=== PATIENT | male | born 1970 | race Caucasian/White ===

== ENCOUNTER 2017-07-04 11:24 | Inpatient (IN) | payer OTHER ==
[2017-07-04 11:31] VITALS: BMI 20.2
[2017-07-04] MEDS ORDERED: SODIUM CHLORIDE 1,000 ML IV STA ×2 (11:54→15:10)
[2017-07-04] MEDS ORDERED: ACETAMINOPHEN 1000 MG/100 ML VIAL (NON FORMULARY) IVPB ONE (11:54)
[2017-07-04] MEDS ORDERED: ACETAMINOPHEN INJECTION 100 ML IVPB ONE (13:06)
[2017-07-04 13:16] LABS: MCH 31.7 pg (25.7-33.7); MCHC 33.4 g/dl (32.0-35.9); MEAN CELL VOLUME 94.9 fl (80-96); MEAN PLT VOLUME 9.4 fl (7.5-11.1); PLATELET COUNT 301 K/MM3 (134-434); RDW 12.7 % (11.9-15.9)
--- NOTE | 2017-07-04 13:16 | PDOC ---
History of Present Illness - General Chief Complaint: Revisit, Lab Variance Stated Complaint: LAB VARIANCE Time Seen by Provider: 07/04/17 11:50 History Source: Patient Exam Limitations: No Limitations - History of Present Illness Initial Comments: 07/04/17 12:20 47-year-old male presents to the ED with complaints of as per recommendations from the nurse practitioner [facility]. Patient history of HIV since 1999 and is an intranasal heroin user who due to loss of insurance, had stopped taking his antiretroviral medications about 3 months ago. 2 days ago he went back to the clinic since he has insurance now and clinician had noted elevated white count, low sodium, and bandemia. As per Dr. Prasad, patient is to be admitted to the hospitalist and he will manage pt. Patient does complain of cough but denies fever, chills abdominal pain, dysuria, or rash. 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 Patient states also has lost about 30 pounds over the past few months after coming off his medication stating he has no urge to eat and has no taste in his mouth. Patient states no change in urine pattern, change in bowel pattern, redness around the surgical site, headache, cough, or difficulty breathing. Timing/Duration: getting worse Severity: moderate Associated Symptoms: reports: loss of appetite Past History - Travel Traveled outside of the country in the last 30 days: No Close contact w/someone who was outside of country & ill: No - Past Medical History Allergies/Adverse Reactions: Allergies Allergy/AdvReac Type Severity Reaction Status Date / Time gluten Allergy Severe Vomiting Verified 07/04/17 11:28 peanut Allergy Severe Itching Verified 07/04/17 11:28 NKDA Allergy Uncoded 07/04/17 11:28 Home Medications: Ambulatory Orders Colchicine [Colcrys -] 0.6 mg PO PRN #30 tablet 08/16/16 Efavirenz/Emtricitab/Tenofovir [Atripla Tablet -] 1 tab PO DAILY #30 tab Entecavir [Baraclude] 0.5 mg PO DAILY #30 tablet 02/27/17 Anemia: No Asthma: No Cancer: No Cardiac Disorders: No CVA: No COPD: No CHF: No Dementia: No Diabetes: No GI Disorders: Yes (acid reflux) Disorders: No HTN: No Hypercholesterolemia: No Kidney Stones: No Liver Disease: Yes (hepatitis b.) Seizures: No Thyroid Disease: No Other medical history: gout. - Surgical History Abdominal Surgery: No Appendectomy: No Cardiac Surgery: No Cholecystectomy: No Lung Surgery: No Neurologic Surgery: No Orthopedic Surgery: No - Reproductive History Testicular Surgery: No - Suicide/Smoking/Psychosocial Hx Smoking History: Current every day smoker Have you smoked in the past 12 months: Yes Number of Cigarettes Smoked Daily: 30 Cigars Per Day: 0 Information on smoking cessation initiated: No 'Breaking Loose' booklet given: 07/29/16 Hx Alcohol Use: Yes (VERY RARELY.) Drug/Substance Use Hx: Yes (SNIFFS HEROIN.) Substance Use Type: Alcohol, Heroin Hx Substance Use Treatment: Yes Patient Lives Alone: Yes Lives with/in: lives alone Review of Systems - Review of Systems Able to Perform ROS?: Yes Constitutional: Yes: Loss of Appetite, Weakness, Unintentional Wgt. Loss HEENTM: Yes: Other (dry tongue) Cardiac (ROS): No: Symptoms Reported ABD/GI: Yes: Poor Appetite, Poor Fluid Intake. No: Constipated, Diarrhea, Nausea, Vomiting, Abdominal cramping : No: Symptoms Reported Musculoskeletal: No: Symptoms Reported Integumentary: No: Symptoms Reported Neurological: Yes: Weakness (mild generalized) Psychiatric: No: Anxiety, Depression Hematologic/Lymphatic: Yes: See HPI *Physical Exam - Vital Signs Last Vital Signs Temp Pulse Resp BP Pulse Ox 98.6 F 124 H 20 134/62 97 07/04/17 11:28 07/04/17 11:28 07/04/17 11:28 07/04/17 11:28 07/04/17 11:28 - Physical Exam General Appearance: Yes: Appropriately Dressed, Cachetic. No: Apparent Distress , Alcohol on Breath HEENT: positive: EOMI, CULLEN, Normal Voice, TMs Normal. negative: Pharynx Normal (+ thrush) Neck: positive: Normal Thyroid. negative: Lymphadenopathy (R), Lymphadenopathy (L) Respiratory/Chest: positive: Other (coarse BS throughout both lung ramirez. ). negative: Respiratory Distress, Accessory Muscle Use Cardiovascular: positive: Regular Rhythm, Tachycardia. negative: Murmur Gastrointestinal/Abdominal: positive: Soft. negative: Tenderness Integumentary: positive: Normal Color, Dry, Warm, Other (Healed incision to the medial aspect of left wrist.) Neurologic: positive: Normal Mood/Affect, Motor Strength 5/5 (ambulatory) Heart Score/ECG Review - History History: Slightly suspicious - Electrocardiogram EKG: Normal - Age Age: 45-65 - Risk Factors Risk Factors Heart Score: Yes Smoking History Based on the list above the patient has:: 1-2 risk factors - Troponin Troponin: </= normal limit - Score Heart Score - Total: 2 - ECG Impressions Tachycardia: Sinus (rate 108. normal sinus.) ED Treatment Course - LABORATORY CBC & Chemistry Diagram: 07/05/17 06:05 07/05/17 06:05 - RADIOLOGY Radiology Studies Ordered: Category Date Time Status CHEST X-RAY PORTABLE* [RAD] Stat Radiology 07/04/17 11:54 Taken Medical Decision Making - Medical Decision Making 07/04/17 13:00 Patient sent in from [facility] for evaluation of leukocytosis, bandemia, hyponatremia, 30 pound weight loss, and no antiretroviral medication for the past 3 months due to lack of insurance. Patient on exam appears cachectic with no acute abdominal pain, no signs of infection, or acute distress. Patient ordered for full septic workup including lipase and influenza testing. Differential to include sepsis, leukemia, pancreatitis, and dehydration 07/04/17 13:24 Laboratory Tests 07/04/17 12:17 WBC 29.0 H Hgb 11.6 L D Hct 34.8 L Chest x-ray shows right upper lobe density consolidative opacity extending toward the right which is compatible with pneumonia in the appropriate clinical setting. Patient is a heavy pack per day smoker and did have coarse breath sounds to both lung ramirez. Patient ordered for vancomycin and azithromycin. 07/04/17 15:10 Laboratory Tests 07/04/17 07/04/17 07/04/17 12:17 12:17 12:17 WBC 29.0 H Hgb 11.6 L D Hct 34.8 L PT with INR 18.50 H INR 1.64 H D VBG pH POC VBG pO2 Mixed VBG HCO3 Sodium 128 L Chloride 90 L Carbon Dioxide 29 Anion Gap 9 BUN 14 Creatinine 1.1 Creat Clearance w eGFR > 60 Random Glucose 113 H Lactic Acid Calcium 8.7 Magnesium 2.0 Total Bilirubin 1.5 H AST 49 H D ALT 20 Alkaline Phosphatase 156 H Creatine Kinase Pending Troponin I Pending Total Protein 7.1 Albumin 2.1 L D Lipase 48 L 07/04/17 07/04/17 12:40 14:00 WBC Hgb Hct PT with INR INR VBG pH 7.46 H POC VBG pO2 55.1 H Mixed VBG HCO3 27.8 H Sodium Chloride Carbon Dioxide Anion Gap BUN Creatinine Creat Clearance w eGFR Random Glucose Lactic Acid 2.6 H* Calcium Magnesium Total Bilirubin AST ALT Alkaline Phosphatase Creatine Kinase Troponin I Total Protein Albumin Lipase Patient ordered for second bag of IV fluid secondary to hyponatremia and elevated lactic. Awaiting urine specimen. Patient be admitted to Dr. Cabrera. Consultation the computer for Dr. Prasad 07/04/17 17:16 Laboratory Tests 07/04/17 15:30 Lactic Acid 1.2 07/04/17 17:17 Selected Entries 07/04/17 14:58 Temperature 98.3 F Pulse Rate [ 85 Apical] Respiratory 16 Rate Blood Pressure 109/67 [Left Arm] O2 Sat by Pulse 97 Oximetry (%) *DC/Admit/Observation/Transfer Diagnosis at time of Disposition: HIV (human immunodeficiency virus infection), Sepsis, Hyponatremia Pneumonia involving right lung Qualifiers: Pneumonia type: due to unspecified organism - Discharge Dispostion Admit: Yes - Referrals
[2017-07-04] MEDS ORDERED: AZITHROMYCIN 250 MG TABLET PO ONE (13:25)
[2017-07-04] MEDS ORDERED: VANCOMYCIN 1,000 MG in DEXTROSE 5%-WATER - 250 ML IVPB ONE (13:25)
[2017-07-04] MEDS ORDERED: AZITHROMYCIN 250 MG TABLET ONE (13:38)
[2017-07-04] MEDS ORDERED: VANCOMYCIN 1 GRAM (PRE-DOCKED) 250 ML IVPB ONE (13:38)
[2017-07-04 13:45] LABS: INR 1.64 (0.82-1.09); PROTHROMBIN TIME (PATIENT) 18.5 SEC (9.98-11.88)
[2017-07-04 13:49] LABS: ALBUMIN 2.1 g/dl (3.4-5.0); ANION GAP 9 (8-16); BILIRUBIN,TOTAL 1.5 mg/dL (0.2-1.0); CALCIUM 8.7 mg/dL (8.5-10.1); CO2 29 mmol/L (21-32); CREATININE 1.1 mg/dL (0.7-1.3); GLUCOSE,RANDOM 113 mg/dL (74-106); SGPT/ALT 20 U/L (12-78); TOT PROT 7.1 g/dl (6.4-8.2)
[2017-07-04 13:52] LABS: ALK PHOS 156 U/L (45-117)
[2017-07-04 14:14] LABS: VENOUS BLOOD GAS HCO3 27.8 meq/L (19-25)
--- NOTE | 2017-07-04 14:23 | PDOC ---
*Physical Exam - Vital Signs Last Vital Signs Temp Pulse Resp BP Pulse Ox 98.6 F 124 H 20 134/62 97 07/04/17 11:28 07/04/17 11:28 07/04/17 11:28 07/04/17 11:28 07/04/17 11:28 ED Treatment Course - LABORATORY CBC & Chemistry Diagram: 07/08/17 06:30 07/08/17 06:30 - ADDITIONAL ORDERS Additional order review: Laboratory Results 07/04/17 07/04/17 12:17 12:17 PT with INR 18.50 H INR 1.64 H D Blood Type Cancelled Antibody Screen Cancelled Spec Expiration Date Cancelled 07/04/17 13:26 Influenza Types A,B Antigen (SHAVONNE) - Preliminary Nasopharyngeal Swab - Preliminary 07/04/17 12:17 RBC 3.67 L MCV 94.9 MCHC 33.4 RDW 12.7 MPV 9.4 Neutrophils % No Result Required. Lymphocytes % No Result Required. - Medications Given in the ED: ED Medications Discontinued Medications Generic Name Dose Route Start Last Admin Trade Name Justinoq PRN Reason Stop Dose Admin Acetaminophen 1,000 mg 07/04/17 11:54 07/04/17 13:14 Ofirmev Injection - IVPB 07/04/17 11:55 1,000 mg ONCE ONE Administration Azithromycin 500 mg 07/04/17 13:25 07/04/17 13:42 Zithromax - PO 07/04/17 13:26 500 mg ONCE ONE Administration Sodium Chloride 1,000 mls @ 1,000 mls/hr 07/04/17 11:54 07/04/17 13:14 Normal Saline - IV 07/04/17 12:53 1,000 mls/hr ASDIR STA Administration Medical Decision Making - Medical Decision Making 07/04/17 14:17 Patient seen and evaluated with the nurse practitioner. I agree with the overall evaluation, assessment, and management with the following summary of visit: 47-year-old male with history of HIV noncompliant with medications sent from [facility] for admission for leukocytosis with bandemia, overall failure to thrive. Agree with exam, ill-appearing Persistent leukocytosis, right upper lobe chest x-ray findings Started on antibiotics Proceed with admission *DC/Admit/Observation/Transfer Diagnosis at time of Disposition: HIV (human immunodeficiency virus infection), Hyponatremia Pneumonia involving right lung Qualifiers: Pneumonia type: due to unspecified organism Lung location: unspecified part of lung Qualified Code(s): J18.9 - Pneumonia, unspecified organism; J18.9 - Pneumonia, unspecified organism Sepsis Qualifiers: Sepsis type: sepsis due to unspecified organism Qualified Code(s): A41.9 - Sepsis, unspecified organism; A41.9 - Sepsis, unspecified organism; A41.9 - Sepsis, unspecified organism
[2017-07-04 14:32] LABS: SGOT/AST 49 U/L (15-37)
[2017-07-04 14:36] LABS: VENOUS PH 7.46 (7.32-7.42)
[2017-07-04 15:02] LABS: PLATELET ESTIMATE ADEQUATE (NORMAL); TOTAL CELLS COUNTED 100
[2017-07-04 15:19] LABS: TROPONIN I < 0.02 ng/ml (0.00-0.05)
--- NOTE | 2017-07-04 15:20 | HP ---
Admitting History and Physical - Admission Chief Complaint: abnomal labs History of Present Illness: 47-year-old male presents to the ED with complaints of as per recommendations from the nurse [facility]. Patient history of HIV recent 1999 and is a nasal heroin user who due to loss of insurance had stopped taking his HAART medications about 3 months ago and 2 days ago went back to the clinic since he has insurance now and had noted elevated white count, low sodium, and bandemia. as per Dr. Prasad patient is to be admitted to the hospitalist and he will consult . 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 Patient states also has lost about 30 pounds over the past few months after coming off his medication stating he has no urge to eat and has no taste in his mouth. Patient states no change in urine pattern, change in bowel pattern, redness around the surgical site, headache, cough, or difficulty breathing. Timing/Duration: getting worse Severity: moderate Associated Symptoms: reports: loss of appetite per patient he has been feeling weak tired no appetite,and very thirsty, he said that the clinic called him stating that he had abnormal labs needs to be admitted per patient he also complaining of generalized abdominal pain, no fever no chills, but does have a cough History Source: Medical Record - Past Medical History Infectious Disease: Yes: HIV - Smoking History Smoking history: Current every day smoker Have you smoked in the past 12 months: Yes Aproximately how many cigarettes per day: 30 - Alcohol/Substance Use Hx Alcohol Use: Yes (VERY RARELY.) Home Medications - Allergies Allergies/Adverse Reactions: Allergies Allergy/AdvReac Type Severity Reaction Status Date / Time gluten Allergy Severe Vomiting Verified 07/04/17 11:28 peanut Allergy Severe Itching Verified 07/04/17 11:28 NKDA Allergy Uncoded 07/04/17 11:28 - Home Medications Home Medications: Ambulatory Orders Colchicine [Colcrys -] 0.6 mg PO PRN #30 tablet 08/16/16 Efavirenz/Emtricitab/Tenofovir [Atripla Tablet -] 1 tab PO DAILY #30 tab Entecavir [Baraclude] 0.5 mg PO DAILY #30 tablet 02/27/17 Family Disease History - Family Disease History Family Disease History: Heart Disease: Mother (HAD CABG), CA: Father (LUNGS AND ), Brother (heart disease), Other: Brother, Sister (a&w) Review of Systems - Review of Systems Constitutional: reports: Loss of Appetite, Weakness Respiratory: reports: Cough Gastrointestinal: reports: Abdominal Pain Physical Examination Vital Signs: Vital Signs Temperature 98.3 F 07/04/17 14:58 Pulse Rate 85 07/04/17 14:58 Respiratory Rate 16 07/04/17 14:58 Blood Pressure 109/67 07/04/17 14:58 O2 Sat by Pulse Oximetry (%) 97 07/04/17 14:58 Constitutional: Yes: Calm, Thin Cardiovascular: Yes: Regular Rate and Rhythm, S1, S2 Respiratory: Yes: Rhonchi Gastrointestinal: Yes: Tenderness (in LLQ) Edema: No Psychiatric: Yes: Alert, Oriented Labs: CBC, BMP 07/04/17 12:17 07/04/17 12:17 Imaging - Results Chest X-ray: Report Reviewed Problem List - Problems (1) Sepsis Assessment/Plan: admit inpatient ID broad spectrum abx monitir WBC trend lactic acid chest to further evaulate lung mas and abdomen CT r.o colitis hearpin sub q Code(s): A41.9 - SEPSIS, UNSPECIFIED ORGANISM (2) HIV (human immunodeficiency virus infection) Assessment/Plan: HAART per ID Code(s): Z21 - ASYMPTOMATIC HUMAN IMMUNODEFICIENCY VIRUS INFECTION STATUS (3) Pneumonia involving right lung Assessment/Plan: iv abx chest ct Code(s): J18.9 - PNEUMONIA, UNSPECIFIED ORGANISM Qualifiers: Pneumonia type: due to unspecified organism (4) Hyponatremia Assessment/Plan: fluids Code(s): E87.1 - HYPO-OSMOLALITY AND HYPONATREMIA
[2017-07-04 15:21] LABS: CPK 169 IU/L (39-308)
[2017-07-04] MEDS ORDERED: ACETAMINOPHEN 325 MG TABLET (FP) PO PRN (15:38)
[2017-07-04 15:40] LABS: URINE APPEARANCE CLEAR; URINE BLOOD 1+ (NEGATIVE); URINE COLOR AMBER; URINE GLUCOSE (UA) NEGATIVE (NEGATIVE); URINE KETONE NEGATIVE (NEGATIVE); URINE NITRITE NEGATIVE (NEGATIVE); URINE UROBILINOGEN 4.0 E.U/dl mg/dL (0.2-1.0)
[2017-07-04 15:44] LABS: URINE PROTEIN 1+ (NEGATIVE)
[2017-07-04 15:46] LABS: URINE MUCUS RARE; URINE RBC 2 /hpf (0-3); URINE WBC 3 /hpf (3-5)
[2017-07-04] MEDS: SODIUM CHLORIDE 1,000 ML IV SCH (16:29)
[2017-07-04 18:23] LABS: URINE LEUK ESTERASE Negative (NEGATIVE)
[2017-07-04 20:08] LABS: ANION GAP 7 (8-16); CALCIUM 8.4 mg/dL (8.5-10.1); CO2 28 mmol/L (21-32); CREATININE 0.9 mg/dL (0.7-1.3); GLUCOSE,RANDOM 85 mg/dL (74-106)
--- NOTE | 2017-07-04 21:56 | EKG ---
Test Reason : Blood Pressure : / mmHG Vent. Rate : 108 BPM Atrial Rate : 108 BPM P-R Int : 148 ms QRS Dur : 086 ms QT Int : 306 ms P-R-T Axes : 062 058 059 degrees QTc Int : 410 ms SINUS TACHYCARDIA OTHERWISE NORMAL ECG NO PREVIOUS ECGS AVAILABLE CLI Confirmed by DONA CHIN MD ([id number]) on 07/04/2017 9:55:41 PM Referred By: Confirmed By:DONA CHIN MD
[2017-07-04] MEDS: HEPARIN NA (PORCINE) 5,000 UNITS/ML 1ML VIAL SQ SCH (22:13)
[2017-07-04 22:18] LABS: URIC ACID 4.3 mg/dL (2.6-7.2)
[2017-07-05] MEDS: SODIUM CHLORIDE 1,000 ML IV SCH ×2 (05:41→17:34)
[2017-07-05 07:24] LABS: MCH 31.4 pg (25.7-33.7); MCHC 32.9 g/dl (32.0-35.9); MEAN CELL VOLUME 95.3 fl (80-96); MEAN PLT VOLUME 9.1 fl (7.5-11.1); PLATELET COUNT 239 K/MM3 (134-434); RDW 13.1 % (11.9-15.9); WHITE BLOOD COUNT 13.9 K/mm3 (4.0-10.0)
[2017-07-05 08:25] LABS: ALBUMIN 1.7 g/dl (3.4-5.0); ANION GAP 8 (8-16); CALCIUM 7.6 mg/dL (8.5-10.1); CO2 27 mmol/L (21-32); GLUCOSE,RANDOM 82 mg/dL (74-106); SGOT/AST 27 U/L (15-37)
[2017-07-05 08:37] LABS: ALK PHOS 207 U/L (45-117); BILIRUBIN,TOTAL 1.1 mg/dL (0.2-1.0); CREATININE 0.8 mg/dL (0.7-1.3); PHOSPHOROUS 2.8 mg/dL (2.5-4.9); SGPT/ALT 17 U/L (12-78); THYROID STIMULATING HORMONE 0.43 uIU/ml (0.358-3.74); TOT PROT 5.6 g/dl (6.4-8.2)
--- NOTE | 2017-07-05 08:56 | CONSULT ---
Consultation: REQUESTING PROVIDER: CONSULT REQUEST: We have been asked to medically evaluate this patient for ( specify). HISTORY OF PRESENT ILLNESS: REVIEW OF SYSTEMS: CONSTITUTIONAL: Absent: fever, chills, diaphoresis, generalized weakness, malaise, loss of appetite, weight change HEENT: Absent: rhinorrhea, nasal congestion, throat pain, throat swelling, difficulty swallowing, mouth swelling, ear pain, eye pain, visual changes CARDIOVASCULAR: Absent: chest pain, syncope, palpitations, irregular heart rate, lightheadedness , peripheral edema RESPIRATORY: Absent: cough, shortness of breath, dyspnea with exertion, orthopnea, wheezing, stridor, hemoptysis GASTROINTESTINAL: Absent: abdominal pain, abdominal distension, nausea, vomiting, diarrhea, constipation, melena, hematochezia GENITOURINARY: Absent: dysuria, frequency, urgency, hesitancy, hematuria, flank pain, genital pain MUSCULOSKELETAL: Absent: myalgia, arthralgia, joint swelling, back pain, neck pain SKIN: Absent: rash, itching, pallor HEMATOLOGIC/IMMUNOLOGIC: Absent: easy bleeding, easy bruising, lymphadenopathy, frequent infections ENDOCRINE: Absent: unexplained weight gain, unexplained weight loss, heat intolerance, cold intolerance NEUROLOGIC: Absent: headache, focal weakness or paresthesias, dizziness, unsteady gait, seizure, mental status changes, bladder or bowel incontinence PSYCHIATRIC: Absent: anxiety, depression, suicidal or homicidal ideation, hallucinations. PHYSICAL EXAMINATION Vital Signs - 24 hr 07/04/17 07/04/17 07/05/17 22:38 23:19 06:18 Temperature 97.8 F 99.0 F Pulse Rate 100 H 88 Respiratory 20 20 20 Rate Blood Pressure 122/76 111/64 O2 Sat by Pulse 98 Oximetry (%) GENERAL: Awake, alert, and fully oriented, in no acute distress. HEAD: Normal with no signs of trauma. EYES: Pupils equal, round and reactive to light, extraocular movements intact, sclera anicteric, conjunctiva clear. No lid lag. EARS, NOSE, THROAT: Ears normal, nares patent, oropharynx clear without exudates. Moist mucous membranes. NECK: Normal range of motion, supple without lymphadenopathy, JVD, or masses. LUNGS: Breath sounds equal, clear to auscultation bilaterally. No wheezes, and no crackles. No accessory muscle use. HEART: Regular rate and rhythm, normal S1 and S2 without murmur, rub or gallop. ABDOMEN: Soft, nontender, not distended, normoactive bowel sounds, no guarding, no rebound, no masses. No hepatomegaly or splenomegaly. MUSCULOSKELETAL: Normal range of motion at all joints. No bony deformities or tenderness. No CVA tenderness. UPPER EXTREMITIES: 2+ pulses, warm, well-perfused. No cyanosis. No clubbing. Cap refill <2 seconds. No peripheral edema. LOWER EXTREMITIES: 2+ pulses, warm, well-perfused. No calf tenderness. No peripheral edema. NEUROLOGICAL: Cranial nerves II-XII intact. Normal speech. Normal gait. PSYCHIATRIC: Cooperative. Good eye contact. Appropriate mood and affect. SKIN: Warm, dry, normal turgor, no rashes or lesions noted. Laboratory Results - last 24 hr 07/04/17 07/04/17 07/04/17 15:30 19:15 19:15 WBC RBC Hgb Hct MCV MCH MCHC RDW Plt Count MPV Neutrophils % Lymphocytes % Sodium 131 L Potassium 4.0 Chloride 96 L Carbon Dioxide 28 Anion Gap 7 L BUN 15 Creatinine 0.9 Creat Clearance w eGFR Random Glucose 85 D Serum Osmolality 275 L Lactic Acid 1.2 Uric Acid 4.3 D Calcium 8.4 L Phosphorus Magnesium Total Bilirubin AST ALT Alkaline Phosphatase Total Protein Albumin Lipase TSH Urine Osmolality Ur Random Sodium 07/04/17 07/04/17 07/05/17 22:00 22:30 06:05 WBC 13.9 H D RBC 3.26 L Hgb 10.2 L D Hct 31.1 L MCV 95.3 MCH 31.4 MCHC 32.9 RDW 13.1 Plt Count 239 D MPV 9.1 Neutrophils % No Result Required. Lymphocytes % No Result Required. Sodium Potassium Chloride Carbon Dioxide Anion Gap BUN Creatinine Creat Clearance w eGFR Random Glucose Serum Osmolality Lactic Acid Uric Acid Calcium Phosphorus Magnesium Total Bilirubin AST ALT Alkaline Phosphatase Total Protein Albumin Lipase TSH Urine Osmolality 327 Ur Random Sodium 11 07/05/17 06:05 WBC RBC Hgb Hct MCV MCH MCHC RDW Plt Count MPV Neutrophils % Lymphocytes % Sodium 137 Potassium 3.9 Chloride 102 Carbon Dioxide 27 Anion Gap 8 BUN 14 Creatinine 0.8 Creat Clearance w eGFR > 60 Random Glucose 82 Serum Osmolality Lactic Acid Uric Acid Calcium 7.6 L Phosphorus 2.8 Magnesium 2.0 Total Bilirubin 1.1 H D AST 27 D ALT 17 Alkaline Phosphatase 207 H D Total Protein 5.6 L D Albumin 1.7 L Lipase 73 TSH 0.43 D Urine Osmolality Ur Random Sodium Active Medications Generic Name Dose Route Start Last Admin Trade Name Freq PRN Reason Stop Dose Admin Acetaminophen 650 mg 07/04/17 15:38 Tylenol - PO Q4H PRN FEVER Heparin Sodium (Porcine) 5,000 unit 07/04/17 22:00 07/04/17 22:13 Heparin - SQ Not Given BID [facility] Sodium Chloride 1,000 mls @ 100 mls/hr 07/04/17 15:45 07/05/17 05:41 Normal Saline - IV 100 mls/hr ASDIR LALIT Administration ASSESSMENT/PLAN: Dispo: We will continue to follow the patient. Thank you for this consultative opportunity.
--- NOTE | 2017-07-05 09:09 | CONSULT ---
Consultation: CONSULT REQUEST: INFECTIOUS DISEASE HISTORY OF PRESENT ILLNESS: Mr. Bautista is a 47yo M with PMHx of Nasal Heroin abuse, daily smoker, HIV, who presented to ER due to abnormal WBC count and bandemia. He stopped taking HAART therapy 3 months ago due to an insurance issue. Yesterday he went to the [facility] for a followup visit, was noted to have WBC count of 33k with 36% bandemia, and was told to come to the ED. Latest CD4 is 430 as of yesterday ( was 1246 in Jul 2016). Latest viral load is pending, was undetectable in Jul 2016. He denies recent fevers and chills but attests to recent night sweats. 2- 3 days ago he was drinking some water and nearly choked, proceeded to cough up a large amount of thick phlegm. He also attests to a 30-40 lb weight loss over the past couple months due to loss of appetite. He states his roommate recently had the flu. In the ER, he was afebrile but notably tachycardic (HR 120s), with leukocytosis (29), and lactic acid of 2.6. A CXR along with CT chest showed a large RUL dense lung consolidation. He was given Zithromax 500mg x1 and Vancomycin 1g x1. Bcx are pending Today, the patient still denies fevers, chills, CP, SOB, but endorses a minimal nonproductive cough. He stated that he will withdraw very soon from Heroin and leave the hospital if he does not get methadone. Active Medications Generic Name Dose Route Start Last Admin Trade Name Freq PRN Reason Stop Dose Admin Acetaminophen 650 mg 07/04/17 15:38 Tylenol - PO Q4H PRN FEVER Diazepam 10 mg 07/05/17 09:29 Valium - PO 07/08/17 09:28 Q4H PRN WITHDRAWAL(CONT SUBST) Heparin Sodium (Porcine) 5,000 unit 07/04/17 22:00 07/04/17 22:13 Heparin - SQ Not Given BID LALIT Sodium Chloride 1,000 mls @ 100 mls/hr 07/04/17 15:45 07/05/17 05:41 Normal Saline - IV 100 mls/hr ASDIR LALIT Administration Levofloxacin 150 mls @ 150 mls/hr 07/05/17 10:00 Levaquin 750 Mg Premixed Ivpb - IVPB DAILY LALIT Methadone HCl 10 mg 07/05/17 09:29 Dolophine - PO 07/05/17 09:30 ONCE ONE Methadone HCl 10 mg 07/05/17 23:00 Dolophine - PO 07/05/17 23:01 ONCE@2300 ONE REVIEW OF SYSTEMS: CONSTITUTIONAL: Absent: fever, chills, diaphoresis, generalized weakness, malaise, loss of appetite, weight change HEENT: Absent: rhinorrhea, nasal congestion, throat pain, throat swelling, difficulty swallowing, mouth swelling, ear pain, eye pain, visual changes CARDIOVASCULAR: Absent: chest pain, syncope, palpitations, irregular heart rate, lightheadedness , peripheral edema RESPIRATORY: Absent: cough, shortness of breath, dyspnea with exertion, orthopnea, wheezing, stridor, hemoptysis GASTROINTESTINAL: Absent: abdominal pain, abdominal distension, nausea, vomiting, diarrhea, constipation, melena, hematochezia GENITOURINARY: Absent: dysuria, frequency, urgency, hesitancy, hematuria, flank pain, genital pain MUSCULOSKELETAL: Absent: myalgia, arthralgia, joint swelling, back pain, neck pain SKIN: Absent: rash, itching, pallor HEMATOLOGIC/IMMUNOLOGIC: Absent: easy bleeding, easy bruising, lymphadenopathy, frequent infections ENDOCRINE: Absent: unexplained weight gain, unexplained weight loss, heat intolerance, cold intolerance NEUROLOGIC: Absent: headache, focal weakness or paresthesias, dizziness, unsteady gait, seizure, mental status changes, bladder or bowel incontinence PSYCHIATRIC: Absent: anxiety, depression, suicidal or homicidal ideation, hallucinations. PHYSICAL EXAMINATION Vital Signs Temperature 99.0 F 07/05/17 06:18 Pulse Rate 88 07/05/17 06:18 Respiratory Rate 20 07/05/17 06:18 Blood Pressure 111/64 07/05/17 06:18 O2 Sat by Pulse Oximetry (%) 98 07/04/17 23:19 GEN: AAOx3, NAD, Lying in bed comfortably not coughing HEENT: PERRLA, EOMi, oral thrush CV: S1, S2, RRR LUNG: CTABL posterior and anteriorly ABD: Soft, NT, ND MSK: No edema, no erythema CBC, BMP 07/05/17 06:05 07/05/17 06:05 Microbiology 07/04/17 13:26 Nasopharyngeal Swab Influenza Types A,B Antigen (SHAVONNE) - Final 07/04/17 13:26 Nasopharyngeal Swab - Final 07/04/17 12:17 Urine - Urine Clean Catch Urine Culture - Final NO GROWTH OBTAINED ASSESSMENT/PLAN: Mr. Bautista is a 47yo M with PMHx of Nasal Heroin abuse, daily smoker, HIV, who presented to ER due to abnormal WBC count and bandemia. Noted to have RUL dense lobar PNA # RUL Pneumonia - likely CAP, unlikely staph, less likely aspiration or obstruction - Levofloxacin 750mg IVPB daily - CBC improved, afebrile - Sputum culture - Urine antigens for Pneumo/Leg - Quantiferon gold, r/o TB - f/u BCx - Monitor VS and CBC - Detox consult, will give today's methadone detox dosing in the meantime - Nystatin swish for oral thrush Discussed w/ Dr Prasad, will follow. Dwight Barnes MD - PGY1 Infectious Disease Visit type - Emergency Visit Emergency Visit: No - New Patient This patient is new to me today: No - Critical Care Critical Care patient: No
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
[2017-07-05] MEDS ORDERED: diazePAM 5 MG TABLET PO PRN (09:29)
--- NOTE | 2017-07-05 09:32 | PN ---
Teaching Attending Note Name of Resident: Dwight Barnes ATTENDING PHYSICIAN STATEMENT I saw and evaluated the patient. I reviewed the resident's note and discussed the case with the resident. I agree with the resident's findings and plan as documented. SUBJECTIVE:ID 47 year old male heroin abuse (nasal) HIV pos many years nonadherant meds. Followed when he come in [facility] Ill 3 weeks sweats couph. No SOB WBC was 33K earlier in clinic and we told him to come to ER. Injury tendon left arm 5 weeks ago with surgery extensive lacerations [facility]. 2 days inpatint OBJECTIVE: Selected Entries 07/05/17 06:18 Temperature 99.0 F Pulse Rate 88 Respiratory 20 Rate Blood Pressure 111/64 Chronically ill appearing ASSESSMENT AND PLAN: HIV off meds Heroin dependency nasal Hyponatremia Impending withdrawal Plan Blood culture Sputum c/s Quant gold Legionella Pneumococcal Ag Levofloxacin 750 mg IVPB daily NO HIV meds at this time Osmar HICKS Problem List - Problems (1) Hyponatremia Code(s): E87.1 - HYPO-OSMOLALITY AND HYPONATREMIA (2) Pneumonia involving right lung Code(s): J18.9 - PNEUMONIA, UNSPECIFIED ORGANISM Qualifiers: Pneumonia type: due to unspecified organism (3) HIV (human immunodeficiency virus infection) Code(s): Z21 - ASYMPTOMATIC HUMAN IMMUNODEFICIENCY VIRUS INFECTION STATUS (4) Heroin dependence Code(s): F11.20 - OPIOID DEPENDENCE, UNCOMPLICATED
[2017-07-05 09:47] LABS: PLATELET ESTIMATE ADEQUATE (NORMAL); TOTAL CELLS COUNTED 100
[2017-07-05] MEDS ORDERED: METHADONE HCL 10 MG TABLET PO ONE ×2 (10:00→23:00)
[2017-07-05] MEDS: HEPARIN NA (PORCINE) 5,000 UNITS/ML 1ML VIAL SQ SCH ×2 (10:13→21:18)
[2017-07-05] MEDS: LEVOFLOXACIN 750 MG IVPB 150 ML IVPB SCH (10:15)
--- NOTE | 2017-07-05 11:14 | PN ---
Teaching Attending Note Name of Resident: Alpa Rodriguez (Nephrology) ATTENDING PHYSICIAN STATEMENT I saw and evaluated the patient. I reviewed the resident's note and discussed the case with the resident. I agree with the resident's findings and plan as documented. SUBJECTIVE: This is a 47 year old Gentleman with PMhx of of HIV (currently on anti-viral meds), Heroin user, current smoker who presented to the ED with Abnormal Labs ( elevated WBC, Low Na levels) and found to have PNA with sepsis syndrome and hyponatremia with serum Na of 128. Pt reports not feeling well with poor intake for the past 5 days. Denies any excessive water intake. No on diuretics at home. No confusion, lethargy, weakness, seizures, AMS. Making urine but has urinary hesitancy, and feeling of incomplete voiding. Home Medications Medication Instructions Recorded Colchicine [Colcrys -] 0.6 mg PO PRN #30 tablet 08/16/16 Efavirenz/Emtricitab/Tenofovir 1 tab PO DAILY #30 tab 08/16/16 [Atripla Tablet -] Entecavir [Baraclude] 0.5 mg PO DAILY #30 tablet 02/27/17 OBJECTIVE: Vital Signs Temperature 98.6 F 07/05/17 10:06 Pulse Rate 89 07/05/17 10:06 Respiratory Rate 17 07/05/17 10:06 Blood Pressure 118/79 07/05/17 10:06 O2 Sat by Pulse Oximetry (%) 98 07/04/17 23:19 Intake & Output 07/02/17 07/03/17 07/04/17 07/05/17 23:59 23:59 23:59 23:59 Intake Total 200 1000 Output Total 300 Balance 200 700 Weight 149 lb NAD, awake and alert MMM, No JVD RRR, No M/R Soft NT/ND No edema in the LE CBC, BMP 07/05/17 06:05 07/05/17 06:05 Current Medications Acetaminophen (Tylenol -) 650 mg PO Q4H PRN PRN Reason: FEVER Diazepam (Valium -) 10 mg PO Q4H PRN PRN Reason: WITHDRAWAL(CONT SUBST) Stop: 07/08/17 09:28 Heparin Sodium (Porcine) (Heparin -) 5,000 unit SQ BID LALIT Last Admin: 07/05/17 10:13 Dose: Not Given Sodium Chloride (Normal Saline -) 1,000 mls @ 100 mls/hr IV [facility]IR [facility] Last Admin: 07/05/17 05:41 Dose: 100 mls/hr Levofloxacin (Levaquin 750 Mg Premixed Ivpb -) 150 mls @ 100 mls/hr IVPB DAILY [facility] Last Admin: 07/05/17 10:15 Dose: 100 mls/hr Methadone HCl (Dolophine -) 10 mg PO ONCE@2300 ONE Stop: 07/05/17 23:01 Nystatin (Nystatin Oral Suspension -) 500,000 units PO Q6HPO [facility] ASSESSMENT AND PLAN: 47 year old Gentleman with PMhx of of HIV (currently on anti-viral meds), Heroin user, current smoker who presented to the ED with Abnormal Labs ( elevated WBC, Low Na levels) and found to have PNA with sepsis syndrome and hyponatremia with serum Na of 128. #Hypovolemic Hyponatremia in setting of PNA/Sepsis Serum na improved to normal limits with isotonic saline Urine studies show appropriate ADH release Urine Na is low showing continued urine concentration Continue isotonic saline for now Trend Na Q24 hours #PNA/Sepsis/HIV continue Abx as per ID f/u urine legionella antigen #Adrenal Adenoma pt does not fit the clinical picture of any active hormonal disorder Check Renin/Aldosterone ratio 24 urine cortisol and metanphrine to be done as outpatient likely will need MRI of the Abd with Igor to better characterize the lesions less likely malignancy given stable appearance Thank you Will follow Ernesto Valiente DO
[2017-07-05] MEDS: NYSTATIN 500,000 UNITS/5 ML SUSPENSION PO SCH ×2 (12:04→17:34)
--- NOTE | 2017-07-05 12:14 | CONSULT ---
Consult Detox [facility] Reason for Current Admission/Consult: daily heroin and cannbis use, needs detox Referred by:: Dwight Barnes - History History of Present Illness: 47 yo m with h/o HIV+, not taking medications because of loss of insurance, last detox at [facility] 08/03 has h/o opioid, alcohol, nicotine, and cannabis dependence was sent over from [facility] for evaluation of fever, cough and wt loss found to have lesion RUL on CXR and now being treated with antibioticsfor pneumonia, quantiferon test pending. Patient feeling fairly comfortable on detox regimen, mild anxiety, insomnia, body aches, tremors, denies IDU sniffs 1 bundle daily denies current alcohol use reports daily cannbis use. - History Source History Provided By: Patient, Medical Record Limitations to Obtaining History: No Limitations - Alcohol/Substance Use Hx Alcohol Use: Yes (VERY RARELY.) Hx Substance Use: Yes (heroin and cannabis daily) Hx Substance Use Treatment: Yes ([facility] 08/03 went fo rdetox priot admission at [facility]) - Current Drug/Alcohol Use Heroin Route: Inhalation Frequency: Daily Amount used: ! bundle daily Date of Last Use: 07/03/17 Marijuana/Hashish Route: Smoking Frequency: Daily Amount used: can not describe Date of Last Use: 07/03/17 - Past Medical History Infectious Disease: Yes: HIV Psych: Yes: Addictions, Anxiety, Depression - Significant Medical Findings: 47 yo m HIV+, not on HAART medications admitted for sepsis and iv antibiotics, CXR + RUL infiltrate, cultures pending quantiferon test sent. Patient is experiencing mild opioid withdrawl sx on current detox regimen. taCHYCARDIA NOTED COWS - Scale Resting Pulse: 1= MO 81-100 Sweatin= Chills/Flushing Restless Observation: 1= Difficult to Sit Still Pupil Size: 1= Pupils >than Normal Bone or Joint Aches: 1= Mild Discomfort Runny Nose/ Eye Tearin= Nasal Congestion GI Upset > 30mins: 1= Stomach Cramp Tremor Observation: 2= Slight Tremor Visible Yawning Observation: 1= 1-2x During Session Anxiety or Irritability: 2=Irritable/Anxious Goose Flesh Skin: 3=Piloerection COWS Score: 15 Assessment Plan - Diagnosis (1) Opioid dependence with withdrawal Status: Acute (2) HIV (human immunodeficiency virus infection) Status: Acute Comment: off meds x 3 mo due to insurance issue update labs consider resume atripla next visit; f/u with pcp discussed adherence, importance of f/u and monitoring (3) Nicotine dependence Status: Acute Qualifiers: Nicotine product type: cigarettes Substance use status: uncomplicated Qualified Code(s): F17.210 - Nicotine dependence, cigarettes, uncomplicated; F17.210 - Nicotine dependence, cigarettes, uncomplicated Comment: smoking cessation discussed (4) Cannabis dependence Status: Acute (5) Pneumonia involving right lung Status: Acute Qualifiers: Pneumonia type: due to unspecified organism (6) Pericardial effusion Status: Acute - Plan Plan: requesting discharge on monday and will accelerate detox protocol , referred to outpatient for either MMTP or new focus for MAT w suboxone, patient is refusing rehab at this time, return to HIV PCP for medication managemetn r/o active tb discussed care with [facility] - Medication Detox Regimen/Protocol: Methadone
[2017-07-05] MEDS ORDERED: ONDANSETRON *ODT* 4 MG TABLET SL PRN (12:21)
[2017-07-05] MEDS ORDERED: NAPROXEN 500 MG TABLET (FP) PO PRN (12:22)
[2017-07-05 13:19] LABS: URINE MARIJUANA THC POSITIVE ng/ml (CUTOFF=50)
--- NOTE | 2017-07-05 14:27 | PN ---
Progress Note, Physician Chief Complaint: Sepsis, PNE History of Present Illness: -seen by ID, nephrology and addiction medicine -on IV abx -hyponatremia resolved -Lactic acidosis resolved - - Current Medication List Current Medications: Active Medications Acetaminophen (Tylenol -) 650 mg PO Q4H PRN PRN Reason: FEVER Diazepam (Valium -) 10 mg PO Q4H PRN PRN Reason: WITHDRAWAL(CONT SUBST) Stop: 07/08/17 09:28 Diazepam (Valium -) 10 mg PO HS [facility] Heparin Sodium (Porcine) (Heparin -) 5,000 unit SQ BID [facility] Last Admin: 07/05/17 10:13 Dose: Not Given Sodium Chloride (Normal Saline -) 1,000 mls @ 100 mls/hr IV ASDIR [facility] Last Admin: 07/05/17 05:41 Dose: 100 mls/hr Levofloxacin (Levaquin 750 Mg Premixed Ivpb -) 150 mls @ 100 mls/hr IVPB DAILY [facility] Last Admin: 07/05/17 10:15 Dose: 100 mls/hr Methadone HCl (Dolophine -) 10 mg PO ONCE@2300 ONE Stop: 07/05/17 23:01 Methadone HCl (Dolophine -) 20 mg PO ONCE ONE Stop: 07/06/17 06:01 Naproxen (Naprosyn -) 500 mg PO BID PRN PRN Reason: PAIN Nystatin (Nystatin Oral Suspension -) 500,000 units PO Q6HPO [facility] Last Admin: 07/05/17 12:04 Dose: 500,000 units Ondansetron HCl (Zofran Odt -) 8 mg SL Q6H PRN PRN Reason: NAUSEA AND/OR VOMITING Zolpidem Tartrate (Ambien -) 10 mg PO HS PRN PRN Reason: INSOMNIA - Objective Vital Signs: Vital Signs Temperature 98.6 F 07/05/17 10:06 Pulse Rate 89 07/05/17 10:06 Respiratory Rate 17 07/05/17 10:06 Blood Pressure 118/79 07/05/17 10:06 O2 Sat by Pulse Oximetry (%) 94 L 07/05/17 10:05 Constitutional: Yes: Well Nourished, No Distress, Calm Cardiovascular: Yes: Regular Rate and Rhythm Respiratory: Yes: Regular, Wheezes (ADDISON) Labs: CBC, BMP 07/05/17 06:05 07/05/17 06:05 INR, PTT INR 1.64 (0.82-1.09) H D 07/04/17 12:17 Problem List - Problems (1) Heroin dependence Assessment/Plan: -seen by addiction medicine -no new treatment recommended Code(s): F11.20 - OPIOID DEPENDENCE, UNCOMPLICATED (2) Hyponatremia Assessment/Plan: -resolved -seen by nephrology -on IVF Code(s): E87.1 - HYPO-OSMOLALITY AND HYPONATREMIA (3) Pneumonia involving right lung Assessment/Plan: -right upper lobe -IV abx -seen by ID -mild cough Code(s): J18.9 - PNEUMONIA, UNSPECIFIED ORGANISM Qualifiers: Pneumonia type: due to unspecified organism (4) Sepsis Assessment/Plan: -wbc improve -LA normalized -IV abx -ID on board Code(s): A41.9 - SEPSIS, UNSPECIFIED ORGANISM (5) Chronic hepatitis B Code(s): B18.1 - CHRONIC VIRAL HEPATITIS B WITHOUT DELTA-AGENT (6) HIV (human immunodeficiency virus infection) Assessment/Plan: -no HAART needed as per ID Code(s): Z21 - ASYMPTOMATIC HUMAN IMMUNODEFICIENCY VIRUS INFECTION STATUS (7) Pericardial effusion Assessment/Plan: -seen by Cardiology, pericardial effusion insignificant at this time. Code(s): I31.3 - PERICARDIAL EFFUSION (NONINFLAMMATORY) Assessment/Plan see problem list
--- NOTE | 2017-07-05 15:13 | CON.CARD ---
Consult Consult Specialty:: Cardiology Referred by:: Dr Asher Reason for Consultation:: tachycardia - History of Present Illness Chief Complaint: admitted for weight loss and weakness History of Present Illness: He is a 47yo Male with PMHx of Nasal Heroin abuse, smoker, HIV off of HAART for the past 3 months, who was admitted due to abnormal WBC count and bandemia, found with pneumonia, adrenal mass, hyponatremia and sinus tachycardia. No chest pain, sob, orthopnea, PND or edema. Baseline exercise tolerance is good. He has been feeling weak and losing weight. - History Source History Provided By: Patient, Medical Record - Past Medical History Infectious Disease: Yes: HIV - Alcohol/Substance Use Hx Alcohol Use: Yes (VERY RARELY.) - Smoking History Smoking history: Current every day smoker Have you smoked in the past 12 months: Yes Aproximately how many cigarettes per day: 30 Home Medications - Allergies Allergies/Adverse Reactions: Allergies Allergy/AdvReac Type Severity Reaction Status Date / Time gluten Allergy Severe Vomiting Verified 07/04/17 11:28 peanut Allergy Severe Itching Verified 07/04/17 11:28 NKDA Allergy Uncoded 07/04/17 11:28 - Home Medications Home Medications: Ambulatory Orders Colchicine [Colcrys -] 0.6 mg PO PRN #30 tablet 08/16/16 Efavirenz/Emtricitab/Tenofovir [Atripla Tablet -] 1 tab PO DAILY #30 tab Entecavir [Baraclude] 0.5 mg PO DAILY #30 tablet 02/27/17 Family Disease History - Family Disease History Family Disease History: Heart Disease: Mother (HAD CABG), CA: Father (LUNGS AND ), Brother (heart disease), Other: Brother, Sister (a&w) Review of Systems - Review of Systems Constitutional: reports: Lethargy, Loss of Appetite, Unintentional Wgt. Loss Vital Signs: Vital Signs Temperature 98.6 F 07/05/17 10:06 Pulse Rate 89 07/05/17 10:06 Respiratory Rate 17 07/05/17 10:06 Blood Pressure 118/79 07/05/17 10:06 O2 Sat by Pulse Oximetry (%) 94 L 07/05/17 10:05 Constitutional: Yes: Cachectic, Poor Hygeine, Thin Eyes: Yes: Conjunctiva Clear, EOM Intact HENT: Yes: Atraumatic, Normocephalic Neck: Yes: Supple, Trachea Midline Respiratory: Yes: CTA Bilaterally Gastrointestinal: Yes: Normal Bowel Sounds, Soft Renal/: Yes: WNL Cardiovascular: Yes: Regular Rate and Rhythm, Tachycardia JVD: No Carotid Bruit: No PMI: Non-Displaced Heart Sounds: Yes: S1, S2 Extremities: Yes: WNL Edema: No Peripheral Pulses WNL: Yes - Other Data Labs, Other Data: CBC, BMP 07/05/17 06:05 07/05/17 06:05 INR, PTT INR 1.64 (0.82-1.09) H D 07/04/17 12:17 sinus tachycardia, normal ecg. Imaging - Results Chest X-ray: Report Reviewed (RUL density) Cat Scan: Report Reviewed (RUL density, 1.1 cm left adrenal nodule, small pericardial effusion.) EKG: Report Reviewed (stach, normal ecg.) Problem List - Problems (1) Sinus tachycardia Assessment/Plan: Non cardiac cause. No need for cardiac testing. Likely due to infection, dehydration and electrolyte abnormalities. Small pericardial effusion seen on CT scan is not clinically significant. Will see prn. Code(s): R00.0 - TACHYCARDIA, UNSPECIFIED
[2017-07-05] MEDS ORDERED: BISACODYL 5 MG TABLET.DR (FP) PO ONE (20:27)
[2017-07-05] MEDS ORDERED: DOCUSATE SODIUM 100 MG CAPSULE (FP) PO PRN (20:27)
[2017-07-05] MEDS: ZOLPIDEM TARTRATE 5 MG TABLET PO PRN (21:17)
[2017-07-05] MEDS: diazePAM 5 MG TABLET PO SCH (21:18)
[2017-07-06] MEDS: NYSTATIN 500,000 UNITS/5 ML SUSPENSION PO SCH ×3 (00:59→05:57)
[2017-07-06] MEDS: SODIUM CHLORIDE 1,000 ML IV SCH (05:55)
[2017-07-06] MEDS ORDERED: METHADONE HCL 10 MG TABLET PO ONE (06:00)
[2017-07-06 08:21] LABS: BASOPHIL 0.2 % (0-2.0); EOSINOPHIL 1.2 % (0-4.5); MCH 31.6 pg (25.7-33.7); MCHC 33.5 g/dl (32.0-35.9); MEAN CELL VOLUME 94.1 fl (80-96); MEAN PLT VOLUME 8.7 fl (7.5-11.1); NEUTROPHILS 64.2 % (42.8-82.8); PLATELET COUNT 250 K/MM3 (134-434); RDW 13.2 % (11.9-15.9); WHITE BLOOD COUNT 11.9 K/mm3 (4.0-10.0)
[2017-07-06 08:43] LABS: ALBUMIN 1.6 g/dl (3.4-5.0); ALK PHOS 281 U/L (45-117); ANION GAP 6 (8-16); BILIRUBIN,TOTAL 0.8 mg/dL (0.2-1.0); CALCIUM 7.6 mg/dL (8.5-10.1); CO2 28 mmol/L (21-32); CREATININE 0.6 mg/dL (0.7-1.3); GLUCOSE,RANDOM 88 mg/dL (74-106); SGOT/AST 38 U/L (15-37); SGPT/ALT 25 U/L (12-78); TOT PROT 5.4 g/dl (6.4-8.2)
--- NOTE | 2017-07-06 09:32 | PN ---
Physical Exam: SUBJECTIVE: Patient seen and examined. Feels much improved. Not coughing, no CP , no SOB, no fevers, no chills. OBJECTIVE: Vital Signs Period Temp Pulse Resp BP Sys/Ashby Pulse Ox Last 24 Hr 97.2 F-98.6 F 83-99 17-22 118-147/72-90 94-96 GEN: AAOx3, NAD, Lying in bed comfortably not coughing HEENT: PERRLA, EOMi, oral thrush CV: S1, S2, RRR LUNG: Inspiratory and expiratory wheezing in R lung. ABD: Soft, NT, ND MSK: No edema, no erythema Active Medications Generic Name Dose Route Start Last Admin Trade Name Freq PRN Reason Stop Dose Admin Acetaminophen 650 mg 07/04/17 15:38 Tylenol - PO Q4H PRN FEVER Diazepam 10 mg 07/05/17 09:29 Valium - PO 07/08/17 09:28 Q4H PRN WITHDRAWAL(CONT SUBST) Diazepam 10 mg 07/05/17 22:00 07/05/17 21:18 Valium - PO 10 mg HS LALIT Administration Docusate Sodium 100 mg 07/05/17 20:27 Colace - PO BID PRN CONSTIPATION Heparin Sodium (Porcine) 5,000 unit 07/04/17 22:00 07/05/17 21:18 Heparin - SQ Not Given BID LALIT Sodium Chloride 1,000 mls @ 100 mls/hr 07/04/17 15:45 07/06/17 05:55 Normal Saline - IV 100 mls/hr ASDIR LALIT Administration Levofloxacin 150 mls @ 100 mls/hr 07/05/17 10:00 07/05/17 10:15 Levaquin 750 Mg Premixed Ivpb - IVPB 100 mls/hr DAILY LALIT Administration Naproxen 500 mg 07/05/17 12:22 Naprosyn - PO BID PRN PAIN Nystatin 500,000 units 07/05/17 12:00 07/06/17 05:57 Nystatin Oral Suspension - PO Not Given Q6HPO LALIT Ondansetron HCl 8 mg 07/05/17 12:21 Zofran Odt - SL Q6H PRN NAUSEA AND/OR VOMITING Zolpidem Tartrate 10 mg 07/05/17 12:23 07/05/17 21:17 Ambien - PO 10 mg HS PRN Administration INSOMNIA CBC, BMP 07/06/17 06:50 07/06/17 06:50 Microbiology 07/04/17 13:26 Nasopharyngeal Swab Influenza Types A,B Antigen (SHAVONNE) - Final 07/04/17 13:26 Nasopharyngeal Swab - Final 07/04/17 12:17 Urine - Urine Clean Catch Urine Culture - Final NO GROWTH OBTAINED 07/04/17 12:17 Blood - Peripheral Venous Blood Culture - Preliminary NO GROWTH OBTAINED AFTER 24 HOURS, INCUBATION TO CONTINUE FOR 4 DAYS. ASSESSMENT/PLAN: Mr. Bautista is a 47yo M with PMHx of Nasal Heroin abuse, daily smoker, HIV, who presented to ER due to abnormal WBC count and bandemia. Noted to have RUL dense lobar PNA # RUL Pneumonia - likely CAP, unlikely staph, less likely aspiration or obstruction - Continue Levofloxacin 750mg IVPB daily (day 2) - Sputum culture pending - Urine antigens for Pneumo/Leg - Negative PPD per [facility] - HIV RNA viral load >26,000 Discussed w/ Dr Prasad, will follow. Dwight Barnes MD - PGY1 Infectious Disease Visit type - Emergency Visit Emergency Visit: No - New Patient This patient is new to me today: No - Critical Care Critical Care patient: No - Discharge Referral Referred to [facility] No
--- NOTE | 2017-07-06 09:56 | PN ---
Progress Note, Physician Chief Complaint: Sepsis, PNE History of Present Illness: -seen by ID, nephrology and addiction medicine -on IV abx -hyponatremia resolved -Lactic acidosis resolved -urine lg/pne pending - Current Medication List Current Medications: Active Medications Acetaminophen (Tylenol -) 650 mg PO Q4H PRN PRN Reason: FEVER Diazepam (Valium -) 10 mg PO Q4H PRN PRN Reason: WITHDRAWAL(CONT SUBST) Stop: 07/08/17 09:28 Diazepam (Valium -) 10 mg PO HS [facility] Last Admin: 07/05/17 21:18 Dose: 10 mg Docusate Sodium (Colace -) 100 mg PO BID PRN PRN Reason: CONSTIPATION Heparin Sodium (Porcine) (Heparin -) 5,000 unit SQ BID [facility] Last Admin: 07/05/17 21:18 Dose: Not Given Sodium Chloride (Normal Saline -) 1,000 mls @ 100 mls/hr IV ASDIR [facility] Last Admin: 07/06/17 05:55 Dose: 100 mls/hr Levofloxacin (Levaquin 750 Mg Premixed Ivpb -) 150 mls @ 100 mls/hr IVPB DAILY [facility] Last Admin: 07/05/17 10:15 Dose: 100 mls/hr Naproxen (Naprosyn -) 500 mg PO BID PRN PRN Reason: PAIN Ondansetron HCl (Zofran Odt -) 8 mg SL Q6H PRN PRN Reason: NAUSEA AND/OR VOMITING Zolpidem Tartrate (Ambien -) 10 mg PO HS PRN PRN Reason: INSOMNIA Last Admin: 07/05/17 21:17 Dose: 10 mg - Objective Vital Signs: Vital Signs Temperature 97.9 F 07/06/17 06:28 Pulse Rate 99 H 07/06/17 06:28 Respiratory Rate 20 07/06/17 06:28 Blood Pressure 147/90 07/06/17 06:28 O2 Sat by Pulse Oximetry (%) 96 07/05/17 21:00 Constitutional: Yes: Well Nourished, No Distress, Calm Cardiovascular: Yes: Regular Rate and Rhythm Respiratory: Yes: Regular Musculoskeletal: Yes: WNL Extremities: Yes: WNL Edema: No Peripheral Pulses WNL: Yes Neurological: Yes: Alert, Oriented Psychiatric: Yes: Alert, Oriented Labs: CBC, BMP 07/06/17 06:50 07/06/17 06:50 INR, PTT INR 1.64 (0.82-1.09) H D 07/04/17 12:17 Problem List - Problems (1) Heroin dependence Assessment/Plan: -seen by addiction medicine -no new treatment recommended Code(s): F11.20 - OPIOID DEPENDENCE, UNCOMPLICATED (2) Hyponatremia Assessment/Plan: -resolved -seen by nephrology -on IVF Code(s): E87.1 - HYPO-OSMOLALITY AND HYPONATREMIA (3) Pneumonia involving right lung Assessment/Plan: -right upper lobe -IV abx -seen by ID -mild cough Code(s): J18.9 - PNEUMONIA, UNSPECIFIED ORGANISM Qualifiers: Pneumonia type: due to unspecified organism (4) Sepsis Assessment/Plan: -resolved -wbc improved -LA normalized -IV abx -ID on board Code(s): A41.9 - SEPSIS, UNSPECIFIED ORGANISM (5) Chronic hepatitis B Code(s): B18.1 - CHRONIC VIRAL HEPATITIS B WITHOUT DELTA-AGENT (6) HIV (human immunodeficiency virus infection) Assessment/Plan: -no HAART needed as per ID Code(s): Z21 - ASYMPTOMATIC HUMAN IMMUNODEFICIENCY VIRUS INFECTION STATUS (7) Pericardial effusion Assessment/Plan: -seen by Cardiology, pericardial effusion insignificant at this time. Code(s): I31.3 - PERICARDIAL EFFUSION (NONINFLAMMATORY) (8) Constipation Assessment/Plan: -dulcolax x 1 -colace bid Code(s): K59.00 - CONSTIPATION, UNSPECIFIED Assessment/Plan see problem list
[2017-07-06] MEDS ORDERED: PT OWN MED DRAWER 7, Y5N ONE ×2 (10:32→21:19)
[2017-07-06] MEDS: LEVOFLOXACIN 750 MG IVPB 150 ML IVPB SCH (10:36)
[2017-07-06] MEDS: HEPARIN NA (PORCINE) 5,000 UNITS/ML 1ML VIAL SQ SCH ×2 (10:36→21:23)
[2017-07-06] MEDS: cloNIDine HCL 0.1 MG TABLET PO SCH ×3 (10:42→21:21)
--- NOTE | 2017-07-06 11:01 | PN ---
Teaching Attending Note Name of Resident: Dwight Barnes ATTENDING PHYSICIAN STATEMENT I saw and evaluated the patient. I reviewed the resident's note and discussed the case with the resident. I agree with the resident's findings and plan as documented. SUBJECTIVE: Levofloxacin day 2 antibiotics OBJECTIVE: ASSESSMENT AND PLAN: Microbiology 07/04/17 13:26 Nasopharyngeal Swab Influenza Types A,B Antigen (SHAVONNE) - Final 07/04/17 13:26 Nasopharyngeal Swab - Final 07/04/17 12:17 Urine - Urine Clean Catch Urine Culture - Final NO GROWTH OBTAINED Selected Entries 07/06/17 06:28 Temperature 97.9 F Pulse Rate 99 H Respiratory 20 Rate Blood Pressure 147/90 Laboratory Tests 06/12/15 03/16/16 07/03/17 13:20 13:10 14:00 WBC Hgb Plt Count Neutrophils % (Manual) Lymphocytes % (Manual) Monocytes % (Manual) INR BUN Creatinine Random Glucose Lactic Acid Total Bilirubin AST Alkaline Phosphatase Urine RBC Urine WBC Absolute CD4 [place] 430 Hepatitis B Antibody 25,890 Hepatitis C Ab (EIA) <0.1 HIV-1 RNA (PCR) 07/03/17 07/04/17 07/04/17 14:00 12:17 12:17 WBC 29.0 H Hgb 11.6 L D Plt Count 301 Neutrophils % (Manual) 75 D Lymphocytes % (Manual) 13 D Monocytes % (Manual) 7 INR BUN Creatinine Random Glucose Lactic Acid Total Bilirubin AST Alkaline Phosphatase Urine RBC 2 Urine WBC 3 Absolute CD4 [place] Hepatitis B Antibody Hepatitis C Ab (EIA) HIV-1 RNA (PCR) Pending 07/04/17 07/04/17 07/05/17 12:17 12:40 06:05 WBC 13.9 H D Hgb 10.2 L D Plt Count 239 D Neutrophils % (Manual) Lymphocytes % (Manual) Monocytes % (Manual) INR 1.64 H D BUN Creatinine Random Glucose Lactic Acid 2.6 H* Total Bilirubin AST Alkaline Phosphatase Urine RBC Urine WBC Absolute CD4 [place] Hepatitis B Antibody Hepatitis C Ab (EIA) HIV-1 RNA (PCR) 07/05/17 06:05 WBC Hgb Plt Count Neutrophils % (Manual) Lymphocytes % (Manual) Monocytes % (Manual) INR BUN 14 Creatinine 0.8 Random Glucose 82 Lactic Acid Total Bilirubin 1.1 H D AST 27 D Alkaline Phosphatase 207 H D Urine RBC Urine WBC Absolute CD4 [place] Hepatitis B Antibody Hepatitis C Ab (EIA) HIV-1 RNA (PCR) Assessment HIV related PNA unspecified Plan Continue current antibiotic Osmar HICKS Problem List - Problems (1) Hyponatremia Code(s): E87.1 - HYPO-OSMOLALITY AND HYPONATREMIA (2) Pneumonia involving right lung Code(s): J18.9 - PNEUMONIA, UNSPECIFIED ORGANISM (3) HIV (human immunodeficiency virus infection) Code(s): Z21 - ASYMPTOMATIC HUMAN IMMUNODEFICIENCY VIRUS INFECTION STATUS (4) Heroin dependence Code(s): F11.20 - OPIOID DEPENDENCE, UNCOMPLICATED
--- NOTE | 2017-07-06 13:06 | EKG ---
Test Reason : Blood Pressure : / mmHG Vent. Rate : 086 BPM Atrial Rate : 086 BPM P-R Int : 160 ms QRS Dur : 084 ms QT Int : 362 ms P-R-T Axes : 063 049 048 degrees QTc Int : 433 ms NORMAL SINUS RHYTHM NORMAL ECG WHEN COMPARED WITH ECG OF 04-JUL-2017 12:45, NO SIGNIFICANT CHANGE WAS FOUND Confirmed by CHAO TOVAR MD ([id number]) on 07/06/2017 1:05:44 PM Referred By: TERRELL LONDON DR Confirmed By:CHAO TOVAR MD
[2017-07-06] MEDS: CYCLOBENZAPRINE HCL 10 MG TABLET (FP) PO SCH ×2 (14:20→21:21)
--- NOTE | 2017-07-06 15:49 | PN ---
Physical Exam: SUBJECTIVE: Patient seen and examined at bed side this morning. Feels better than yesterday. Denies chest pain, sob, cough, palpitation, abdominal pain, nausea or vomiting. No acute overnight events. OBJECTIVE: Vital Signs Period Temp Pulse Resp BP Sys/Ashby Pulse Ox Last 24 Hr 97.2 F-98.2 F 83-99 18-22 124-147/74-90 96-96 GENERAL: Young male, thinly built, Awake, alert, and fully oriented, in no acute distress. HEAD: Normal with no signs of trauma. EYES: EOM intact, pallor +, no icterus. EARS, NOSE, THROAT: Ears normal. Moist mucous membranes. Oral thrush + NECK: Supple. LUNGS: B/L coarse breath sounds. wheezes + No accessory muscle use. HEART: Regular rate and rhythm, normal S1 and S2 without murmur. ABDOMEN: Soft, not distended. Hepatosplenomegaly couldn't be appreciated. MUSCULOSKELETAL: Normal range of motion at all joints. No bony deformities or tenderness. UPPER EXTREMITIES: Left forearm-surgical scar +, 2+ pulses, warm, well- perfused. No cyanosis. No clubbing. Cap refill <2 seconds. No peripheral edema. LOWER EXTREMITIES: 2+ pulses, warm, well-perfused. No calf tenderness. No peripheral edema. NEUROLOGICAL: No facial droop. Normal speech. Gait not observed. PSYCHIATRIC: Cooperative. Good eye contact. Appropriate mood and affect. SKIN: Warm, dry, normal turgor, no rashes or lesions noted. Laboratory Results - last 24 hr 07/05/17 07/06/17 07/06/17 06:05 06:50 06:50 WBC 11.9 H RBC 3.17 L Hgb 10.0 L Hct 29.8 L MCV 94.1 MCH 31.6 MCHC 33.5 RDW 13.2 Plt Count 250 MPV 8.7 Neutrophils % 64.2 Lymphocytes % 21.8 D Monocytes % 12.6 H D Eosinophils % 1.2 Basophils % 0.2 Sodium 139 Potassium 4.2 Chloride 105 Carbon Dioxide 28 Anion Gap 6 L BUN 11 D Creatinine 0.6 L D Creat Clearance w eGFR > 60 Random Glucose 88 Calcium 7.6 L Total Bilirubin 0.8 D AST 38 H D ALT 25 D Alkaline Phosphatase 281 H D Total Protein 5.4 L Albumin 1.6 L Cortisol AM Sample 14.1 Active Medications Generic Name Dose Route Start Last Admin Trade Name Freq PRN Reason Stop Dose Admin Acetaminophen 650 mg 07/04/17 15:38 Tylenol - PO Q4H PRN FEVER Clonidine 0.1 mg 07/06/17 10:15 07/06/17 13:34 Catapres - PO 0.1 mg BID LALIT Administration Cyclobenzaprine HCl 5 mg 07/06/17 14:00 07/06/17 14:20 Flexeril - PO 5 mg TID LALIT Administration Diazepam 10 mg 07/05/17 09:29 Valium - PO 07/08/17 09:28 Q4H PRN WITHDRAWAL(CONT SUBST) Diazepam 10 mg 07/05/17 22:00 07/05/17 21:18 Valium - PO 10 mg HS LALIT Administration Docusate Sodium 100 mg 07/05/17 20:27 Colace - PO BID PRN CONSTIPATION Heparin Sodium (Porcine) 5,000 unit 07/04/17 22:00 07/06/17 10:36 Heparin - SQ Not Given BID LALIT Sodium Chloride 1,000 mls @ 100 mls/hr 07/04/17 15:45 07/06/17 05:55 Normal Saline - IV 100 mls/hr ASDIR LALIT Administration Levofloxacin 150 mls @ 100 mls/hr 07/05/17 10:00 07/06/17 10:36 Levaquin 750 Mg Premixed Ivpb - IVPB 100 mls/hr DAILY LALIT Administration Methadone HCl 15 mg 07/07/17 06:00 Dolophine - PO 07/07/17 23:59 ONCE ONE Methadone HCl 10 mg 07/08/17 10:00 Dolophine - PO 07/08/17 10:01 ONCE ONE Methadone HCl 5 mg 07/09/17 06:00 Dolophine - PO 07/09/17 23:59 ONCE@0600 ONE Naproxen 500 mg 07/05/17 12:22 Naprosyn - PO BID PRN PAIN Ondansetron HCl 8 mg 07/05/17 12:21 Zofran Odt - SL Q6H PRN NAUSEA AND/OR VOMITING Zolpidem Tartrate 10 mg 07/05/17 12:23 07/05/17 21:17 Ambien - PO 10 mg HS PRN Administration INSOMNIA Patient is a 47 year old male was asked to come to the ER for hyponatremia, leukocytosis of 33K, bandemia of 36% noted from the labs done at [facility] a day prior to arrival, admitted for further evaluation. ASSESSMENT/PLAN: 1. Sepsis likely secondary to CAP 2. Hyponatremia 3. Normocytic anemia 4. Heroine abuse 5. Active smoker # Hypovolemic hyopnatremia likely in the setting of sepsis secondary to PNA Also could be due to insensible loss (Night sweats +); less fluid intake, decreased appetite. Sodium 139 today. Hyponatremia improved with IV NS Stopped IV fluids today. Patient tolerating PO, encourage fluids intake orally. Repeat BMP in am Cortisol AM normal. TSH normal. # Incidental adrenal nodule: Found in CT abdomen/Pelvis: 1.3 cm right adrenal nodule representing an adenoma without change in comparison to CT abdomen of 10/06/16 Renin/aldosterone pending F/up as outpatient with Dr. Valiente. Patient has been notified about the above mentioned finding. # Urinary symptoms Would suggest patient to follow up as outpatient, get prostate checked. Rest as per primary Case seen and discussed with Dr. Valiente. Visit type - Emergency Visit Emergency Visit: Yes ED Registration Date: 07/04/17 Care time: The patient presented to the Emergency Department on the above date and was hospitalized for further evaluation of their emergent condition. - New Patient This patient is new to me today: No - Critical Care Critical Care patient: No
--- NOTE | 2017-07-06 15:55 | PN ---
Teaching Attending Note Name of Resident: Alpa Rodriguez (Nephrology) ATTENDING PHYSICIAN STATEMENT I saw and evaluated the patient. I reviewed the resident's note and discussed the case with the resident. I agree with the resident's findings and plan as documented. SUBJECTIVE: Pt seen and examined at the bedside no acute complaints on IVF no sob, chest pain, N/V/D OBJECTIVE: Vital Signs Temperature 97.9 F 07/06/17 06:28 Pulse Rate 99 H 07/06/17 06:28 Respiratory Rate 18 07/06/17 09:00 Blood Pressure 147/90 07/06/17 06:28 O2 Sat by Pulse Oximetry (%) 96 07/06/17 09:00 Intake & Output 07/03/17 07/04/17 07/05/17 07/06/17 23:59 23:59 23:59 23:59 Intake Total 200 3950 1700 Output Total 300 1400 Balance 200 3650 300 Weight 149 lb NAD, awake and alert MMM, No JVD RRR, No M/R Soft NT/ND No edema in the LE CBC, BMP 07/06/17 06:50 07/06/17 06:50 Laboratory Tests 07/06/17 06:50 Calcium 7.6 L Albumin 1.6 L Current Medications Acetaminophen (Tylenol -) 650 mg PO Q4H PRN PRN Reason: FEVER Clonidine (Catapres -) 0.1 mg PO BID [facility] Last Admin: 07/06/17 13:34 Dose: 0.1 mg Cyclobenzaprine HCl (Flexeril -) 5 mg PO TID [facility] Last Admin: 07/06/17 14:20 Dose: 5 mg Diazepam (Valium -) 10 mg PO Q4H PRN PRN Reason: WITHDRAWAL(CONT SUBST) Stop: 07/08/17 09:28 Diazepam (Valium -) 10 mg PO HS [facility] Last Admin: 07/05/17 21:18 Dose: 10 mg Docusate Sodium (Colace -) 100 mg PO BID PRN PRN Reason: CONSTIPATION Heparin Sodium (Porcine) (Heparin -) 5,000 unit SQ BID [facility] Last Admin: 07/06/17 10:36 Dose: Not Given Levofloxacin (Levaquin 750 Mg Premixed Ivpb -) 150 mls @ 100 mls/hr IVPB DAILY [facility] Last Admin: 07/06/17 10:36 Dose: 100 mls/hr Methadone HCl (Dolophine -) 15 mg PO ONCE ONE Stop: 07/07/17 23:59 Methadone HCl (Dolophine -) 10 mg PO ONCE ONE Stop: 07/08/17 10:01 Methadone HCl (Dolophine -) 5 mg PO ONCE@0600 ONE Stop: 07/09/17 23:59 Naproxen (Naprosyn -) 500 mg PO BID PRN PRN Reason: PAIN Ondansetron HCl (Zofran Odt -) 8 mg SL Q6H PRN PRN Reason: NAUSEA AND/OR VOMITING Zolpidem Tartrate (Ambien -) 10 mg PO HS PRN PRN Reason: INSOMNIA Last Admin: 07/05/17 21:17 Dose: 10 mg ASSESSMENT AND PLAN: 47 year old Gentleman with PMhx of of HIV (currently on anti-viral meds), Heroin user, current smoker who presented to the ED with Abnormal Labs ( elevated WBC, Low Na levels) and found to have PNA with sepsis syndrome and hyponatremia with serum Na of 128. #Hypovolemic Hyponatremia in setting of PNA/Sepsis Serum na now stable can d/c IVF and trend Na with oral intake #PNA/Sepsis/HIV continue Abx as per ID f/u urine legionella antigen #Adrenal Adenoma Renin/Aldosterone ratio pending will need outpatient eval with 24 hr urine studies and contrast enhanced imaging less likely that lesion is active adenoma or malignancy Thank you Will follow Ernesto Valiente DO OBJECTIVE: ASSESSMENT AND PLAN:
[2017-07-06] MEDS: diazePAM 5 MG TABLET PO SCH (21:20)
[2017-07-06] MEDS: HYDROCORTISONE 2.5% TOPICAL CREAM 30 GM TUBE TP SCH (21:21)
[2017-07-06] MEDS: ZOLPIDEM TARTRATE 5 MG TABLET PO PRN (21:24)
[2017-07-07] MEDS: CYCLOBENZAPRINE HCL 10 MG TABLET (FP) PO SCH ×2 (05:47→13:20)
[2017-07-07] MEDS ORDERED: METHADONE HCL 5 MG TABLET PO ONE (06:00)
[2017-07-07 08:48] LABS: ANION GAP 6 (8-16); CALCIUM 8.1 mg/dL (8.5-10.1); CO2 30 mmol/L (21-32); CREATININE 0.7 mg/dL (0.7-1.3); GLUCOSE,RANDOM 85 mg/dL (74-106)
[2017-07-07] MEDS ORDERED: PT OWN MED DRAWER 7, Y5N ONE (09:50)
[2017-07-07] MEDS: LEVOFLOXACIN 750 MG IVPB 150 ML IVPB SCH (09:52)
[2017-07-07] MEDS: cloNIDine HCL 0.1 MG TABLET PO SCH (09:52)
[2017-07-07] MEDS: HYDROCORTISONE 2.5% TOPICAL CREAM 30 GM TUBE TP SCH ×2 (09:54→21:11)
[2017-07-07] MEDS: HEPARIN NA (PORCINE) 5,000 UNITS/ML 1ML VIAL SQ SCH ×2 (09:55→21:12)
--- NOTE | 2017-07-07 10:56 | PN ---
Physical Exam: SUBJECTIVE: Patient seen and examined this AM. Looks well. No CP, no SOB, no cough, no fevers, no chills OBJECTIVE: Vital Signs Period Temp Pulse Resp BP Sys/Ashby Pulse Ox Last 24 Hr 98.0 F-98.4 F 78-88 18-20 124-144/79-82 GEN: AAOx3, NAD, Lying in bed comfortably not coughing HEENT: PERRLA, EOMi, oral thrush CV: S1, S2, RRR LUNG: Inspiratory and expiratory wheezing in R lung. ABD: Soft, NT, ND MSK: No edema, no erythema Active Medications Generic Name Dose Route Start Last Admin Trade Name Freq PRN Reason Stop Dose Admin Acetaminophen 650 mg 07/04/17 15:38 Tylenol - PO Q4H PRN FEVER Clonidine 0.1 mg 07/06/17 10:15 07/07/17 09:52 Catapres - PO 0.1 mg BID LALIT Administration Cyclobenzaprine HCl 5 mg 07/06/17 14:00 07/07/17 05:47 Flexeril - PO 5 mg TID LALIT Administration Diazepam 10 mg 07/05/17 09:29 Valium - PO 07/08/17 09:28 Q4H PRN WITHDRAWAL(CONT SUBST) Diazepam 10 mg 07/05/17 22:00 07/06/17 21:20 Valium - PO 10 mg HS LALIT Administration Docusate Sodium 100 mg 07/05/17 20:27 Colace - PO BID PRN CONSTIPATION Heparin Sodium (Porcine) 5,000 unit 07/04/17 22:00 07/07/17 09:55 Heparin - SQ Not Given BID LALIT Hydrocortisone 1 applic 07/06/17 22:00 07/07/17 09:54 Anusol 2.5% Hc Cream - TP 1 applic BID LALIT Administration Levofloxacin 150 mls @ 100 mls/hr 07/05/17 10:00 07/07/17 09:52 Levaquin 750 Mg Premixed Ivpb - IVPB 100 mls/hr DAILY LALIT Administration Methadone HCl 15 mg 07/07/17 06:00 07/07/17 05:56 Dolophine - PO 07/07/17 23:59 15 mg ONCE ONE Administration Methadone HCl 10 mg 07/08/17 10:00 Dolophine - PO 07/08/17 10:01 ONCE ONE Methadone HCl 5 mg 10/22/17 06:00 Dolophine - PO 07/09/17 23:59 ONCE@0600 ONE Naproxen 500 mg 07/05/17 12:22 Naprosyn - PO BID PRN PAIN Ondansetron HCl 8 mg 07/05/17 12:21 Zofran Odt - SL Q6H PRN NAUSEA AND/OR VOMITING Zolpidem Tartrate 10 mg 07/05/17 12:23 07/06/17 21:24 Ambien - PO 10 mg HS PRN Administration INSOMNIA CBC, BMP 07/06/17 06:50 07/07/17 06:00 Microbiology 07/05/17 16:20 Sputum - Expectorated Gram Stain - Final MANY GRAM POSITIVE COCCI IN CHAINS 07/04/17 13:26 Nasopharyngeal Swab Influenza Types A,B Antigen (SHAVONNE) - Final 07/04/17 13:26 Nasopharyngeal Swab - Final 07/04/17 12:17 Urine - Urine Clean Catch Urine Culture - Final NO GROWTH OBTAINED 07/07/17 06:00 Sputum - Expectorated AFB Smear Concentration - Preliminary 07/07/17 06:00 Sputum - Expectorated Mycobacterial Culture - Preliminary 07/04/17 12:17 Blood - Peripheral Venous Blood Culture - Preliminary NO GROWTH OBTAINED AFTER 48 HOURS, INCUBATION TO CONTINUE FOR 3 DAYS. 07/04/17 12:17 Blood - Peripheral Venous Blood Culture - Preliminary NO GROWTH OBTAINED AFTER 48 HOURS, INCUBATION TO CONTINUE FOR 3 DAYS. ASSESSMENT/PLAN: Mr. Bautista is a 47yo M with PMHx of Nasal Heroin abuse, daily smoker, HIV, who presented to ER due to abnormal WBC count and bandemia. Noted to have RUL dense lobar PNA # RUL Pneumonia - likely CAP, unlikely staph, less likely aspiration or obstruction - Sputum cx gram stain shows G+ cocci in chains, await final cx - Continue Levofloxacin 750mg IVPB daily (day 3) - Awaiting Sputum AFB To discuss w/ Dr Hernandez, will follow. Dwight Barnes MD - PGY1 Infectious Disease Visit type - Emergency Visit Emergency Visit: No - New Patient This patient is new to me today: No - Critical Care Critical Care patient: No - Discharge Referral Referred to [facility] Med P.C.: No
--- NOTE | 2017-07-07 12:33 | PN ---
Teaching Attending Note Name of Resident: Dwight Barnes ATTENDING PHYSICIAN STATEMENT I saw and evaluated the patient. I reviewed the resident's note and discussed the case with the resident. I agree with the resident's findings and plan as documented. SUBJECTIVE: feeling better OBJECTIVE: Vital Signs Period Temp Pulse Resp BP Sys/Ashby Pulse Ox Last 24 Hr 98.0 F-98.4 F 78-88 18-20 124-144/79-82 cor-rrr lungs decreased bs RUL abd soft nt ext no edema CBC, BMP 07/06/17 06:50 07/07/17 06:00 Microbiology 07/05/17 16:20 Sputum - Expectorated Gram Stain - Final 07/05/17 16:20 Sputum - Expectorated Sputum Culture - Preliminary NORMAL RESPIRATORY JUN 07/07/17 06:00 Sputum - Expectorated AFB Smear Concentration - Preliminary 07/07/17 06:00 Sputum - Expectorated Mycobacterial Culture - Preliminary 07/04/17 12:17 Blood - Peripheral Venous Blood Culture - Preliminary NO GROWTH OBTAINED AFTER 48 HOURS, INCUBATION TO CONTINUE FOR 3 DAYS. 07/04/17 12:17 Blood - Peripheral Venous Blood Culture - Preliminary NO GROWTH OBTAINED AFTER 48 HOURS, INCUBATION TO CONTINUE FOR 3 DAYS. 07/04/17 12:17 Urine - Urine Clean Catch Urine Culture - Final NO GROWTH OBTAINED 07/04/17 13:26 Nasopharyngeal Swab Influenza Types A,B Antigen (SHAVONNE) - Final 07/04/17 13:26 Nasopharyngeal Swab - Final ASSESSMENT AND PLAN: pneumonia- improving on Levaquin will need f/u for HIV after discharge
[2017-07-07 14:14] LABS: QFT TB AG - NIL VALUE <0.01 IU/mL (.); QUANT MITOGEN VALUE 8.61 IU/mL (.); QUANT NIL VALUE 0.06 IU/mL (.); QUANT TB AG VALUE 0.05 IU/mL (.); QUANTIFERON GOLD Negative (Negative)
--- NOTE | 2017-07-07 15:45 | PN ---
Progress Note (short form) - Note Progress Note: Renal follow up for Hyponatremia Pt seen and examined at the bedside no acute complaints sob is imported drinking fluids, not eating so well Vital Signs Temperature 98 F 07/07/17 14:47 Pulse Rate 69 07/07/17 14:47 Respiratory Rate 18 07/07/17 14:47 Blood Pressure 106/59 07/07/17 14:47 O2 Sat by Pulse Oximetry (%) 96 07/07/17 09:00 Intake & Output 07/04/17 07/05/17 07/06/17 07/07/17 23:59 23:59 23:59 23:59 Intake Total 200 3950 2800 500 Output Total 300 1400 Balance 200 3650 1400 500 Weight 149 lb NAD awake and alert RRR CTA anterior exam No LE edema CBC, BMP 07/06/17 06:50 07/07/17 06:00 Laboratory Tests 07/07/17 06:00 Calcium 8.1 L Current Medications Acetaminophen (Tylenol -) 650 mg PO Q4H PRN PRN Reason: FEVER Clonidine (Catapres -) 0.1 mg PO BID [facility] Last Admin: 07/07/17 09:52 Dose: 0.1 mg Cyclobenzaprine HCl (Flexeril -) 5 mg PO TID [facility] Last Admin: 07/07/17 13:20 Dose: 5 mg Diazepam (Valium -) 10 mg PO Q4H PRN PRN Reason: WITHDRAWAL(CONT SUBST) Stop: 07/08/17 09:28 Diazepam (Valium -) 10 mg PO HS [facility] Last Admin: 07/06/17 21:20 Dose: 10 mg Docusate Sodium (Colace -) 100 mg PO BID PRN PRN Reason: CONSTIPATION Heparin Sodium (Porcine) (Heparin -) 5,000 unit SQ BID [facility] Last Admin: 07/07/17 09:55 Dose: Not Given Hydrocortisone (Anusol 2.5% Hc Cream -) 1 applic TP BID [facility] Last Admin: 07/07/17 09:54 Dose: 1 applic Levofloxacin (Levaquin 750 Mg Premixed Ivpb -) 150 mls @ 100 mls/hr IVPB DAILY [facility] Last Admin: 07/07/17 09:52 Dose: 100 mls/hr Methadone HCl (Dolophine -) 15 mg PO ONCE ONE Stop: 07/07/17 23:59 Last Admin: 07/07/17 05:56 Dose: 15 mg Methadone HCl (Dolophine -) 10 mg PO ONCE ONE Stop: 07/08/17 10:01 Methadone HCl (Dolophine -) 5 mg PO ONCE@0600 ONE Stop: 07/09/17 23:59 Naproxen (Naprosyn -) 500 mg PO BID PRN PRN Reason: PAIN Ondansetron HCl (Zofran Odt -) 8 mg SL Q6H PRN PRN Reason: NAUSEA AND/OR VOMITING Zolpidem Tartrate (Ambien -) 10 mg PO HS PRN PRN Reason: INSOMNIA Last Admin: 07/06/17 21:24 Dose: 10 mg A/P 47 year old Gentleman with PMhx of of HIV (currently on anti-viral meds), Heroin user, current smoker who presented to the ED with Abnormal Labs ( elevated WBC, Low Na levels) and found to have PNA with sepsis syndrome and hyponatremia with serum Na of 128. #Hypovolemic Hyponatremia in setting of PNA/Sepsis serum na intially imporved with isotonic saline but with slight downtrend today off IVF no fevers and pt is able to take in oral fluid and foods pt may have some excessive adh release due to his lung pathology trend na off fluids for now #PNA/Sepsis/HIV continue Abx as per ID #Adrenal Adenoma Renin/Aldosterone ratio pending will need outpatient eval with 24 hr urine studies and contrast enhanced imaging less likely that lesion is active adenoma or malignancy Ernesto Valiente DO
[2017-07-07] MEDS ORDERED: CYCLOBENZAPRINE HCL 10 MG TABLET (FP) PO PRN (18:17)
[2017-07-07] MEDS ORDERED: cloNIDine HCL 0.1 MG TABLET PO PRN (18:17)
--- NOTE | 2017-07-07 18:17 | PN ---
[facility] Progress Note (SOAP) Subjective: mild symptoms reported well controlled with current medications ordered, nurse reports daytime sleepiness. Objective: 07/07/17 18:13 Vital Signs - 24 hr 07/06/17 07/07/17 07/07/17 22:00 06:41 09:00 Temperature 98.0 F 98.4 F Pulse Rate 88 78 Respiratory 18 20 Rate Blood Pressure 144/82 124/79 O2 Sat by Pulse 96 Oximetry (%) 07/07/17 07/07/17 10:00 14:47 Temperature 98.2 F 98 F Pulse Rate 82 69 Respiratory 18 18 Rate Blood Pressure 112/67 106/59 O2 Sat by Pulse Oximetry (%) Laboratory Results - last 24 hr 07/05/17 07/06/17 07/07/17 09:50 08:00 06:00 Sodium 135 L Potassium 4.7 Chloride 99 Carbon Dioxide 30 Anion Gap 6 L BUN 11 Creatinine 0.7 Random Glucose 85 Calcium 8.1 L Tumor Marker AFP 1.7 TB Test (QFT) Negative Assessment: 07/07/17 18:15 opioid withdrawal, RUL infiltrate, TB quantiferon neg Plan: cont detox, accelerated schedule for d/c on Monday, d/c valium and other scheduled sedating medications (clonidine and flexeril), may give prn for symptomatic relief of withdrawal.
--- NOTE | 2017-07-07 18:22 | PN ---
Progress Note, Physician Chief Complaint: Sepsis, PNE History of Present Illness: -seen by ID, nephrology and addiction medicine -on IV abx -hyponatremia resolved -Lactic acidosis resolved -urine lg/pne pending - Current Medication List Current Medications: Active Medications Acetaminophen (Tylenol -) 650 mg PO Q4H PRN PRN Reason: FEVER Docusate Sodium (Colace -) 100 mg PO BID PRN PRN Reason: CONSTIPATION Heparin Sodium (Porcine) (Heparin -) 5,000 unit SQ BID [facility] Last Admin: 07/07/17 09:55 Dose: Not Given Hydrocortisone (Anusol 2.5% Hc Cream -) 1 applic TP BID [facility] Last Admin: 07/07/17 09:54 Dose: 1 applic Levofloxacin (Levaquin 750 Mg Premixed Ivpb -) 150 mls @ 100 mls/hr IVPB DAILY [facility] Last Admin: 07/07/17 09:52 Dose: 100 mls/hr Methadone HCl (Dolophine -) 15 mg PO ONCE ONE Stop: 07/07/17 23:59 Last Admin: 07/07/17 05:56 Dose: 15 mg Methadone HCl (Dolophine -) 10 mg PO ONCE ONE Stop: 07/08/17 10:01 Methadone HCl (Dolophine -) 5 mg PO ONCE@0600 ONE Stop: 07/09/17 23:59 Naproxen (Naprosyn -) 500 mg PO BID PRN PRN Reason: PAIN Ondansetron HCl (Zofran Odt -) 8 mg SL Q6H PRN PRN Reason: NAUSEA AND/OR VOMITING Zolpidem Tartrate (Ambien -) 10 mg PO HS PRN PRN Reason: INSOMNIA Last Admin: 07/06/17 21:24 Dose: 10 mg - Objective Vital Signs: Vital Signs Temperature 98 F 07/07/17 14:47 Pulse Rate 69 07/07/17 14:47 Respiratory Rate 18 07/07/17 14:47 Blood Pressure 106/59 07/07/17 14:47 O2 Sat by Pulse Oximetry (%) 96 07/07/17 09:00 Constitutional: Yes: Well Nourished, No Distress, Calm Cardiovascular: Yes: Regular Rate and Rhythm Respiratory: Yes: Regular Gastrointestinal: Yes: Normal Bowel Sounds Edema: No Peripheral Pulses WNL: Yes Neurological: Yes: Alert, Oriented Psychiatric: Yes: Alert, Oriented Labs: CBC, BMP 07/06/17 06:50 07/07/17 06:00 INR, PTT INR 1.64 (0.82-1.09) H D 07/04/17 12:17 Problem List - Problems (1) Heroin dependence Assessment/Plan: -seen by addiction medicine -on methadone tapering dose -no new treatment recommended Code(s): F11.20 - OPIOID DEPENDENCE, UNCOMPLICATED (2) Hyponatremia Assessment/Plan: -resolved -seen by nephrology -on IVF Code(s): E87.1 - HYPO-OSMOLALITY AND HYPONATREMIA (3) Pneumonia involving right lung Assessment/Plan: -right upper lobe -IV abx -seen by ID -no cough -afb sputum pending Code(s): J18.9 - PNEUMONIA, UNSPECIFIED ORGANISM Qualifiers: Pneumonia type: due to unspecified organism (4) Sepsis Assessment/Plan: -resolved -wbc improved -LA normalized -IV abx -ID on board Code(s): A41.9 - SEPSIS, UNSPECIFIED ORGANISM (5) Chronic hepatitis B Code(s): B18.1 - CHRONIC VIRAL HEPATITIS B WITHOUT DELTA-AGENT (6) HIV (human immunodeficiency virus infection) Assessment/Plan: -no HAART needed as per ID Code(s): Z21 - ASYMPTOMATIC HUMAN IMMUNODEFICIENCY VIRUS INFECTION STATUS (7) Constipation Assessment/Plan: -resolved with laxative -colace bid Code(s): K59.00 - CONSTIPATION, UNSPECIFIED (8) Abnormal liver enzymes Assessment/Plan: -trending up -afp negative -CT abd/pelvis unremarkable for nay liver disease -GI consult Code(s): R74.8 - ABNORMAL LEVELS OF OTHER SERUM ENZYMES Assessment/Plan see problem list
[2017-07-07] MEDS: ZOLPIDEM TARTRATE 5 MG TABLET PO PRN (21:12)
[2017-07-08 07:38] LABS: MCHC 33.1 g/dl (32.0-35.9); MEAN CELL VOLUME 93.8 fl (80-96); MEAN PLT VOLUME 8.2 fl (7.5-11.1); PLATELET COUNT 415 K/MM3 (134-434); WHITE BLOOD COUNT 14.5 K/mm3 (4.0-10.0)
[2017-07-08 07:54] LABS: INR 1.25 (0.82-1.09); PROTHROMBIN TIME (PATIENT) 14.1 SEC (9.98-11.88)
[2017-07-08 08:04] LABS: ALBUMIN 2.1 g/dl (3.4-5.0); ANION GAP 6 (8-16); CALCIUM 8.6 mg/dL (8.5-10.1); CO2 29 mmol/L (21-32); CREATININE 0.7 mg/dL (0.7-1.3); GLUCOSE,RANDOM 94 mg/dL (74-106); SGOT/AST 44 U/L (15-37); SGPT/ALT 45 U/L (12-78)
[2017-07-08 08:06] LABS: ALK PHOS 342 U/L (45-117); BILIRUBIN,TOTAL 0.8 mg/dL (0.2-1.0)
--- NOTE | 2017-07-08 08:42 | PN ---
Progress Note, Physician Chief Complaint: ID Levofloxacin IVPB No distress but still couphing NO fever but never did Prominent leukocytosis on admission Day 4 treatment - Current Medication List Current Medications: Active Medications Acetaminophen (Tylenol -) 650 mg PO Q4H PRN PRN Reason: FEVER Clonidine (Catapres -) 0.1 mg PO BID PRN PRN Reason: WITHDRAWAL(CONT SUBST) Last Admin: 07/07/17 21:12 Dose: 0.1 mg Cyclobenzaprine HCl (Flexeril -) 5 mg PO TID PRN PRN Reason: PAIN Last Admin: 07/07/17 21:12 Dose: 5 mg Docusate Sodium (Colace -) 100 mg PO BID PRN PRN Reason: CONSTIPATION Heparin Sodium (Porcine) (Heparin -) 5,000 unit SQ BID [facility] Last Admin: 07/07/17 21:12 Dose: Not Given Hydrocortisone (Anusol 2.5% Hc Cream -) 1 applic TP BID [facility] Last Admin: 07/07/17 21:11 Dose: 1 applic Levofloxacin (Levaquin 750 Mg Premixed Ivpb -) 150 mls @ 100 mls/hr IVPB DAILY [facility] Last Admin: 07/07/17 09:52 Dose: 100 mls/hr Methadone HCl (Dolophine -) 15 mg PO ONCE ONE Stop: 07/07/17 23:59 Last Admin: 07/07/17 05:56 Dose: 15 mg Methadone HCl (Dolophine -) 10 mg PO ONCE ONE Stop: 07/08/17 10:01 Methadone HCl (Dolophine -) 5 mg PO ONCE@0600 ONE Stop: 07/09/17 23:59 Naproxen (Naprosyn -) 500 mg PO BID PRN PRN Reason: PAIN Ondansetron HCl (Zofran Odt -) 8 mg SL Q6H PRN PRN Reason: NAUSEA AND/OR VOMITING Zolpidem Tartrate (Ambien -) 10 mg PO HS PRN PRN Reason: INSOMNIA Last Admin: 07/07/17 21:12 Dose: 10 mg - Objective Vital Signs: Vital Signs Temperature 98.2 F 07/08/17 04:51 Pulse Rate 68 07/08/17 04:51 Respiratory Rate 18 07/08/17 04:51 Blood Pressure 112/66 07/08/17 04:51 O2 Sat by Pulse Oximetry (%) 95 07/07/17 20:15 Constitutional: Yes: Cachectic, Thin HENT: Yes: WNL, Atraumatic Neck: Yes: WNL, Supple Cardiovascular: Yes: Regular Rate and Rhythm, S1, S2. No: Murmur Respiratory: Yes: WNL, Regular, CTA Bilaterally, Rhonchi Gastrointestinal: Yes: Soft. No: Tenderness Edema: No Labs: CBC, BMP 07/08/17 06:30 07/08/17 06:30 INR, PTT INR 1.25 (0.82-1.09) H 07/08/17 06:30 Problem List - Problems (1) Hyponatremia Code(s): E87.1 - HYPO-OSMOLALITY AND HYPONATREMIA (2) Pneumonia involving right lung Code(s): J18.9 - PNEUMONIA, UNSPECIFIED ORGANISM Qualifiers: Pneumonia type: due to unspecified organism (3) HIV (human immunodeficiency virus infection) Code(s): Z21 - ASYMPTOMATIC HUMAN IMMUNODEFICIENCY VIRUS INFECTION STATUS (4) Heroin dependence Code(s): F11.20 - OPIOID DEPENDENCE, UNCOMPLICATED Assessment/Plan Microbiology 07/05/17 16:20 Sputum - Expectorated Gram Stain - Final 07/04/17 12:17 Urine - Urine Clean Catch Urine Culture - Final NO GROWTH OBTAINED 07/05/17 16:20 Sputum - Expectorated Sputum Culture - Preliminary NORMAL RESPIRATORY JUN 07/04/17 12:17 Blood - Peripheral Venous Blood Culture - Preliminary NO GROWTH OBTAINED AFTER 72 HOURS, INCUBATION TO CONTINUE FOR 2 DAYS. 07/04/17 12:17 Blood - Peripheral Venous Blood Culture - Preliminary NO GROWTH OBTAINED AFTER 72 HOURS, INCUBATION TO CONTINUE FOR 2 DAYS. 07/04/17 12:17 Blood - Peripheral Venous Blood Culture - Preliminary NO GROWTH OBTAINED AFTER 24 HOURS, INCUBATION TO CONTINUE FOR 4 DAYS. 07/04/17 12:17 Blood - Peripheral Venous Blood Culture - Preliminary NO GROWTH OBTAINED AFTER 24 HOURS, INCUBATION TO CONTINUE FOR 4 DAYS. Laboratory Tests 07/06/17 07/06/17 07/08/17 06:50 06:50 06:30 WBC Hgb Hct Plt Count Neutrophils % 64.2 Lymphocytes % 21.8 D Monocytes % 12.6 H D INR BUN 12 Creatinine 0.7 Creat Clearance w eGFR > 60 Total Bilirubin 0.8 AST 44 H ALT 45 D Alkaline Phosphatase 342 H D Albumin 1.6 L 07/08/17 07/08/17 06:30 06:30 WBC 14.5 H Hgb 11.1 L D Hct 33.4 L Plt Count 415 D Neutrophils % Lymphocytes % Monocytes % INR 1.25 H BUN Creatinine Creat Clearance w eGFR Total Bilirubin AST ALT Alkaline Phosphatase Albumin Assessment HIV with PNA unspecified etiology T cells 430 Leukocytosis has improved though still 14K after antiibotics 4 days Persitant couph AFBs being collected Elevated Alk phos ?? infiltrating disease AFB ( CT did not show much) Plan Oral Levofloxacin 750mg today Sputum AFB x 3 and PCR probe Chest xray f/u Osmar HICKS
[2017-07-08] MEDS ORDERED: PT OWN MED DRAWER 7, Y5N ONE ×2 (09:50→21:03)
[2017-07-08] MEDS ORDERED: METHADONE HCL 10 MG TABLET PO ONE (10:00)
[2017-07-08] MEDS ORDERED: METHADONE HCL 5 MG TABLET (FOR DETOX USE ONLY) PO ONE (10:00)
[2017-07-08 10:07] LABS: TOTAL CELLS COUNTED 100
[2017-07-08 10:08] LABS: METAMYELOCYTE 1 % (0-2); PLATELET ESTIMATE ADEQUATE (NORMAL)
--- NOTE | 2017-07-08 13:58 | PN ---
Progress Note, Physician Chief Complaint: The patient seen in his room. Refuses to talk. Scheduled for Liver Sonogram today. Being kept NPO. This is a 47 year old Gentleman with PMhx of of HIV (currently on ART, Heroin user, current smoker who presented to the ED with Abnormal Labs (elevated WBC, Low Na levels) and found to have Pneumonia with sepsis syndrome and Hyponatremia with Serum Na of 128. Now 134 mEq/L. Also has Hep B and Positive Quantiferon test for TB. Further eval in progress. - Current Medication List Current Medications: Active Medications Acetaminophen (Tylenol -) 650 mg PO Q4H PRN PRN Reason: FEVER Clonidine (Catapres -) 0.1 mg PO BID PRN PRN Reason: WITHDRAWAL(CONT SUBST) Last Admin: 07/07/17 21:12 Dose: 0.1 mg Cyclobenzaprine HCl (Flexeril -) 5 mg PO TID PRN PRN Reason: PAIN Last Admin: 07/07/17 21:12 Dose: 5 mg Docusate Sodium (Colace -) 100 mg PO BID PRN PRN Reason: CONSTIPATION Efavirenz (Sustiva -) 600 mg PO HS [facility] Emtricitabine/Tenofovir (Truvada) 1 tab PO HS [facility] Heparin Sodium (Porcine) (Heparin -) 5,000 unit SQ BID [facility] Last Admin: 07/07/17 21:12 Dose: Not Given Hydrocortisone (Anusol 2.5% Hc Cream -) 1 applic TP BID [facility] Last Admin: 07/07/17 21:11 Dose: 1 applic Levofloxacin (Levaquin -) 750 mg PO DAILY@0600 [facility] Methadone HCl (Dolophine -) 15 mg PO ONCE ONE Stop: 07/07/17 23:59 Last Admin: 07/07/17 05:56 Dose: 15 mg Methadone HCl (Dolophine -) 5 mg PO ONCE@0600 ONE Stop: 07/09/17 23:59 Naproxen (Naprosyn -) 500 mg PO BID PRN PRN Reason: PAIN Ondansetron HCl (Zofran Odt -) 8 mg SL Q6H PRN PRN Reason: NAUSEA AND/OR VOMITING Zolpidem Tartrate (Ambien -) 10 mg PO HS PRN PRN Reason: INSOMNIA Last Admin: 07/07/17 21:12 Dose: 10 mg - Objective Vital Signs: Vital Signs Temperature 98.2 F 07/08/17 04:51 Pulse Rate 72 07/08/17 10:00 Respiratory Rate 18 07/08/17 10:00 Blood Pressure 120/60 07/08/17 10:00 O2 Sat by Pulse Oximetry (%) 95 07/07/17 20:15 Constitutional: Yes: No Distress, Other (uncooperative) Neck: Yes: Trachea Midline Cardiovascular: Yes: S1, S2 Respiratory: Yes: Regular, Diminished Labs: CBC, BMP 07/08/17 06:30 07/08/17 06:30 INR, PTT INR 1.25 (0.82-1.09) H 07/08/17 06:30 Problem List - Problems (1) Abnormal liver enzymes Code(s): R74.8 - ABNORMAL LEVELS OF OTHER SERUM ENZYMES (2) HIV (human immunodeficiency virus infection) Code(s): Z21 - ASYMPTOMATIC HUMAN IMMUNODEFICIENCY VIRUS INFECTION STATUS (3) Hyponatremia Code(s): E87.1 - HYPO-OSMOLALITY AND HYPONATREMIA (4) Chronic hepatitis B Code(s): B18.1 - CHRONIC VIRAL HEPATITIS B WITHOUT DELTA-AGENT (5) Cough Code(s): R05 - COUGH Assessment/Plan 47 year old Gentleman with PMhx of of HIV (currently on anti-viral meds), Heroin user, current smoker who presented to the ED with Abnormal Labs ( elevated WBC, Low Na levels) and found to have PNA with sepsis syndrome and hyponatremia with serum Na of 128. Serum Sodium 134 meq/L now. Stable. Liver w/u in progress in view of the abnormal LFT's No specific therapy at this point. Will follow with you. Thank you. Kirstin Chang MD
--- NOTE | 2017-07-08 16:12 | PN ---
Progress Note, Physician Chief Complaint: Sepsis, PNE History of Present Illness: NAD, -seen by ID, nephrology and addiction medicine -on IV abx -hyponatremia resolved -Lactic acidosis resolved -urine lg/pne negative - Current Medication List Current Medications: Active Medications Acetaminophen (Tylenol -) 650 mg PO Q4H PRN PRN Reason: FEVER Clonidine (Catapres -) 0.1 mg PO BID PRN PRN Reason: WITHDRAWAL(CONT SUBST) Last Admin: 07/07/17 21:12 Dose: 0.1 mg Cyclobenzaprine HCl (Flexeril -) 5 mg PO TID PRN PRN Reason: PAIN Last Admin: 07/07/17 21:12 Dose: 5 mg Docusate Sodium (Colace -) 100 mg PO BID PRN PRN Reason: CONSTIPATION Efavirenz (Sustiva -) 600 mg PO HS [facility] Emtricitabine/Tenofovir (Truvada) 1 tab PO HS [facility] Heparin Sodium (Porcine) (Heparin -) 5,000 unit SQ BID [facility] Last Admin: 07/07/17 21:12 Dose: Not Given Hydrocortisone (Anusol 2.5% Hc Cream -) 1 applic TP BID [facility] Last Admin: 07/07/17 21:11 Dose: 1 applic Levofloxacin (Levaquin -) 750 mg PO DAILY@0600 [facility] Methadone HCl (Dolophine -) 15 mg PO ONCE ONE Stop: 07/07/17 23:59 Last Admin: 07/07/17 05:56 Dose: 15 mg Methadone HCl (Dolophine -) 5 mg PO ONCE@0600 ONE Stop: 07/09/17 23:59 Naproxen (Naprosyn -) 500 mg PO BID PRN PRN Reason: PAIN Ondansetron HCl (Zofran Odt -) 8 mg SL Q6H PRN PRN Reason: NAUSEA AND/OR VOMITING Zolpidem Tartrate (Ambien -) 10 mg PO HS PRN PRN Reason: INSOMNIA Last Admin: 07/07/17 21:12 Dose: 10 mg - Objective Vital Signs: Vital Signs Temperature 98.1 F 07/08/17 14:00 Pulse Rate 69 07/08/17 14:00 Respiratory Rate 20 07/08/17 14:00 Blood Pressure 118/67 07/08/17 14:00 O2 Sat by Pulse Oximetry (%) 95 07/07/17 20:15 Constitutional: Yes: Well Nourished, No Distress, Calm Cardiovascular: Yes: Regular Rate and Rhythm Respiratory: Yes: Regular Edema: No Peripheral Pulses WNL: Yes Neurological: Yes: Alert, Oriented Psychiatric: Yes: Alert, Oriented Labs: CBC, BMP 07/08/17 06:30 07/08/17 06:30 INR, PTT INR 1.25 (0.82-1.09) H 07/08/17 06:30 Problem List - Problems (1) Heroin dependence Assessment/Plan: -seen by addiction medicine -on methadone tapering dose -no new treatment recommended Code(s): F11.20 - OPIOID DEPENDENCE, UNCOMPLICATED (2) Hyponatremia Assessment/Plan: -mild -seen by nephrology -on IVF Code(s): E87.1 - HYPO-OSMOLALITY AND HYPONATREMIA (3) Pneumonia involving right lung Assessment/Plan: -right upper lobe -IV abx -seen by ID -no cough -afb sputum pending Code(s): J18.9 - PNEUMONIA, UNSPECIFIED ORGANISM Qualifiers: Pneumonia type: due to unspecified organism (4) Sepsis Assessment/Plan: -resolved -wbc improved -LA normalized -IV abx -ID on board Code(s): A41.9 - SEPSIS, UNSPECIFIED ORGANISM (5) Chronic hepatitis B Code(s): B18.1 - CHRONIC VIRAL HEPATITIS B WITHOUT DELTA-AGENT (6) HIV (human immunodeficiency virus infection) Assessment/Plan: -no HAART needed as per ID Code(s): Z21 - ASYMPTOMATIC HUMAN IMMUNODEFICIENCY VIRUS INFECTION STATUS (7) Constipation Assessment/Plan: -resolved with laxative -colace bid Code(s): K59.00 - CONSTIPATION, UNSPECIFIED (8) Abnormal liver enzymes Assessment/Plan: -trending up -afp negative -CT abd/pelvis unremarkable for any liver disease -GI consult -U/S liver ordered by ID Code(s): R74.8 - ABNORMAL LEVELS OF OTHER SERUM ENZYMES Assessment/Plan see problem list
--- NOTE | 2017-07-08 16:24 | PN ---
Progress Note (short form) - Note Progress Note: GI CONSULT PLEASE SEE FULL CONSULTATION DICTATION ELEVATED AP OF UNCLEAR ETIOLOGY IN PATIENT WITH SUBSTANCE ABUSE/ACUTE ON HIV MEDICATION/ NON-COMPLIANT WITH PNEUMONIA ? LUNG LESION NO GI/HEPATIC COMPLAINTS HAS CHRONIC HBV INACTIVE CARRIER CT SCAN OF LIVER UNREVEALING BY LACK OF IV CONTRAST NOT BEEN ON RX PRIOR SONO 08/2016--LIVER WNL RISE IN AP OF UNCLEAR ETIOLOGY OTHER LFT'S UNCHANGED FROM BASELINE RECC: CHECK GGTP/AP ISOENZYMES TO R/O BONE INVOLVEMENT D/C ALL UNNEC. MEDS AGREE WITH LIVER SONOGRAM AFP-----WNL TODAY HBV------CAN F/U PCR DNA---HOWEVER, PT DOES NOT HAVE SIGNIFICANT TRANSMINITIS AND DOUBT RISE IN AP RELATED TO HIS BEING A CHRONIC HBV CARRIER OUTPATIENT LIVER F/U AND HEPATOMA SURVEILLANCE F/U ALL LFT'S NO EVIDENCE OF LIVER FAILURE OR CHOLANGITIS AT THIS TIME THANKSASHLEE MD
[2017-07-08] MEDS: LEVOFLOXACIN 250 MG TABLET (FP) PO SCH (17:44)
[2017-07-08] MEDS: HYDROCORTISONE 2.5% TOPICAL CREAM 30 GM TUBE TP SCH ×2 (17:44→21:29)
[2017-07-08] MEDS: HEPARIN NA (PORCINE) 5,000 UNITS/ML 1ML VIAL SQ SCH ×2 (17:45→21:28)
--- NOTE | 2017-07-08 18:27 | CONS ---
DATE OF CONSULTATION: 07/08/2017 HISTORY: I was asked by Dr. Brandie Caldwell to evaluate Mr. Bautista for elevated liver enzymes. The patient is a 47-year-old male who has a past medical history of being HIV positive. He has not been compliant with medications and has lost his insurance. He came in reporting that he has been using heroin. He was last detoxified at [facility] in July 2016. He has opioid, alcohol, nicotine and marijuana dependence and was sent over from [facility], in doctors' hospital, on July 05 for evaluation of fever, cough and weight loss. He was found to have a lesion in the right upper lung on x-ray. He is now being treated with antibiotics for pneumonia. The patient was feeling comfortable on his detox regimen. He had mild anxiety, insomnia, body aches and tremors when he came in. He denies alcohol use except for rarely, but he admits to heroin and marijuana use daily. He says he last shot up on the morning of admission. The patient is otherwise not a very good informant and does not wish to discuss his prior medical history. I have asked him specifically about liver history; he tells me he has no history of any liver disease. He thinks he may have hepatitis B. He has never been vaccinated or treated for this. He has no family history of liver disease that he is aware of. Again, he is not aware of having any previous acute hepatitis, jaundice, icterus or any biliary, pancreatic or liver disease. Apparently, his medications in the hospital include Zofran, Anusol cream, Tylenol, Levaquin, heparin subcutaneous, Sustiva, Truvada, Ambien, Colace, Catapres, Flexeril, Naprosyn, dolophine. Apparently, he was not compliant with his medications as an outpatient. PHYSICAL EXAMINATION: GENERAL: Currently, on exam, he is very comfortable in appearance. He is in absolutely no acute distress. He appears quite thin and cachectic. HEENT: His dentition is extremely poor. VITALS: He is afebrile. Vital signs are stable. ABDOMEN: Flat, symmetric, soft. Bowel sounds are excellent. There are no masses, rebound or guarding. There is no tenderness to deep palpation. SKIN: He has multiple tattoos. LABORATORY DATA: Notable in that today, his white count is 14, down from a white count of 29,000. His hemoglobin is 11.1, hematocrit is 33.4 with 415,000 platelets. The patient's coags today reveal an INR of 1.25. His chemistries today reveal a serum sodium of 134, potassium of 4.7, chloride 99, bicarbonate 29, BUN of 12, creatinine 0.7, glucose 94, total bilirubin 0.8, AST of 44, ALT of 45, alkaline phosphatase of 342, total protein of 7, albumin of 2.1. He has had a minimal transaminitis. His AST and ALT on July 06, 2017 were 38 and 25, respectively. However, on looking back, they were normal on July 05, 2017 at 27 and 17, respectively. His alkaline phosphatase, however, has been elevated for some time. If we look at prior visits, on August 16, 2016, his alkaline phosphatase was 91. On admission, or at least maybe at [facility] recently on July 03, 2017, it was 185. On July 04, it was 156, on July 05, it was 207, on July 06, it was 281 and today, it is 342. In terms of radiologic data, the patient's last abdominal ultrasound was done on September 07, 2016. It reveals an enlarged, heterogeneous to the pancreatic tail. Otherwise, the gallbladder and liver ultrasound is completely unremarkable. He had a CT scan of the abdomen and pelvis on July 04, 2017. It appears that that exam was done without IV contrast. Therefore, it provided a limited evaluation of the liver. However, the scan revealed that the liver, spleen, pancreas, gallbladder and kidneys are completely unremarkable. The only significant finding is some bladder wall thickened, questionably artifactual, and an adrenal nodule on both the left and the right. Otherwise, there are no significant acute gastrointestinal findings. In terms of other lab data for liver disease, it appears that the patient had serologic studies in that he had hepatitis C values. It looks like these are from 2011, but it looks like he has been hepatitis C antibody negative. It looks like he has evidence of chronic hepatitis B as per a surface antigen positive, as per a hepatitis B E-antigen positive and a hepatitis DNA level of what appears to be 25,000. It is unclear who has been monitoring this and whether or not he has been having any followup. His last alpha fetoprotein tumor marker was done this admission and is perfectly normal. IMPRESSION: It is my impression that Mr. Remy Bautista is a 47-year-old polysubstance abuser who comes in with pneumonia from [facility]. He has had a recent rise in alkaline phosphatase with his other liver enzymes being unchanged. It is unclear if this represents recent medication that he is on. It is unclear if this reflects the recreational drugs he has been using. On the CT scan, there are no acute changes to his liver. However, that exam was limited because no IV contrast was used. Therefore, I agree with obtaining a sonogram of his liver. He has chronic hepatitis B and appears to be a chronic carrier of hepatitis B with low viral load. However, this needs to be monitored and should be followed up closely as an outpatient. Once he stops using drugs, he may be a candidate for eradication treatment of hepatitis B. He needs to have followup alpha fetoprotein levels every 3 months, a sonogram every 6 months to rule out hepatoma, and we need to continue to follow his liver enzymes. He has had no complaints of pain, jaundice or cholangitis at this time and it is unclear if his alkaline phosphatase represents an infiltrative disease such as tuberculosis or lymphoma or an infection related to HIV. At this time, the patient is nontoxic in appearance and we will continue to monitor his liver enzymes with you. OLU ROSADO M.D. CELESTINO/[id number]
[2017-07-08] MEDS ORDERED: EMTRICITABINE 200MG/TENOFOVIR 300MG PO SCH (22:00)
[2017-07-08] MEDS ORDERED: EFAVIRENZ 600 MG TABLET PO SCH (22:00)
[2017-07-09 00:05] LABS: RENIN ACTIVITY(PRA) 0.223 ng/mL/hr (0.167-5.380)
[2017-07-09] MEDS: LEVOFLOXACIN 250 MG TABLET (FP) PO SCH (05:44)
[2017-07-09] MEDS ORDERED: METHADONE HCL 5 MG TABLET PO ONE ×2 (06:00)
[2017-07-09 09:22] LABS: ALBUMIN 2.3 g/dl (3.4-5.0); ANION GAP 11 (8-16); CALCIUM 8.5 mg/dL (8.5-10.1); CO2 25 mmol/L (21-32); CREATININE 0.9 mg/dL (0.7-1.3); GLUCOSE,RANDOM 137 mg/dL (74-106); SGOT/AST 23 U/L (15-37); SGPT/ALT 35 U/L (12-78); TOT PROT 7.4 g/dl (6.4-8.2)
[2017-07-09 09:23] LABS: ALK PHOS 295 U/L (45-117)
[2017-07-09] MEDS: HYDROCORTISONE 2.5% TOPICAL CREAM 30 GM TUBE TP SCH (09:57)
[2017-07-09] MEDS: HEPARIN NA (PORCINE) 5,000 UNITS/ML 1ML VIAL SQ SCH (09:57)
[2017-07-09 10:00] VITALS: BP 121/69; PULSE 84; TEMP 98
[2017-07-09] MEDS ORDERED: METHADONE HCL 10 MG TABLET (FOR DETOX USE ONLY) PO ONE (10:00)
--- NOTE | 2017-07-09 10:09 | PN ---
Progress Note (short form) - Note Progress Note: ID Levofloxacin oral Afebrile NAD Still some couph Selected Entries 07/09/17 09:59 Temperature 98.0 F Pulse Rate 84 Respiratory 20 Rate Blood Pressure 121/69 Microbiology 07/07/17 18:19 Urine - Urine Clean Catch Legionella Antigen - Final 07/07/17 18:19 Urine - Urine Clean Catch Streptococcus pneumoniae Antigen ( M - Final Laboratory Tests 07/08/17 07/09/17 06:30 08:35 WBC 14.5 H Hgb 11.1 L D Hct 33.4 L Plt Count 415 D Creat Clearance w eGFR > 60 Total Bilirubin 1.0 D AST 23 D ALT 35 D Alkaline Phosphatase 295 H Assessment Pneumonia HIV infection Elevated Alk phos ? why Plan Oral antibiotic for another 2-3 days Continue ART Osmar HICKS Problem List - Problems (1) Hyponatremia Code(s): E87.1 - HYPO-OSMOLALITY AND HYPONATREMIA (2) Pneumonia involving right lung Code(s): J18.9 - PNEUMONIA, UNSPECIFIED ORGANISM Qualifiers: Pneumonia type: due to unspecified organism Lung location: unspecified part of lung Qualified Code(s): J18.9 - Pneumonia, unspecified organism; J18.9 - Pneumonia, unspecified organism (3) HIV (human immunodeficiency virus infection) Code(s): Z21 - ASYMPTOMATIC HUMAN IMMUNODEFICIENCY VIRUS INFECTION STATUS (4) Heroin dependence Code(s): F11.20 - OPIOID DEPENDENCE, UNCOMPLICATED
--- NOTE | 2017-07-09 15:59 | PN ---
Progress Note, Physician Chief Complaint: Sepsis, PNE History of Present Illness: NAD, -seen by ID, nephrology and addiction medicine -on po abx -hyponatremia resolved -Lactic acidosis resolved -urine lg/pne negative - Objective Vital Signs: Vital Signs Temperature 98.0 F 07/09/17 09:59 Pulse Rate 84 07/09/17 09:59 Respiratory Rate 20 07/09/17 09:59 Blood Pressure 121/69 07/09/17 09:59 O2 Sat by Pulse Oximetry (%) 98 07/09/17 09:00 Constitutional: Yes: Well Nourished, No Distress, Calm Cardiovascular: Yes: Regular Rate and Rhythm Respiratory: Yes: Regular Musculoskeletal: Yes: WNL Extremities: Yes: WNL Edema: No Peripheral Pulses WNL: Yes Neurological: Yes: Alert, Oriented Psychiatric: Yes: Alert, Oriented Labs: CBC, BMP 07/08/17 06:30 07/09/17 08:35 INR, PTT INR 1.25 (0.82-1.09) H 07/08/17 06:30 Problem List - Problems (1) Heroin dependence Assessment/Plan: -seen by addiction medicine -on methadone tapering dose -no new treatment recommended Code(s): F11.20 - OPIOID DEPENDENCE, UNCOMPLICATED (2) Hyponatremia Assessment/Plan: -mild -seen by nephrology -on IVF Code(s): E87.1 - HYPO-OSMOLALITY AND HYPONATREMIA (3) Pneumonia involving right lung Assessment/Plan: -right upper lobe -IV abx -seen by ID -no cough -afb sputum pending Code(s): J18.9 - PNEUMONIA, UNSPECIFIED ORGANISM Qualifiers: Pneumonia type: due to unspecified organism Lung location: unspecified part of lung Qualified Code(s): J18.9 - Pneumonia, unspecified organism; J18.9 - Pneumonia, unspecified organism (4) Sepsis Assessment/Plan: -resolved -wbc improved -LA normalized -PO abx another 4 days -ID on board Code(s): A41.9 - SEPSIS, UNSPECIFIED ORGANISM Qualifiers: Sepsis type: sepsis due to unspecified organism Qualified Code(s): A41.9 - Sepsis, unspecified organism; A41.9 - Sepsis, unspecified organism; A41.9 - Sepsis, unspecified organism (5) Chronic hepatitis B Code(s): B18.1 - CHRONIC VIRAL HEPATITIS B WITHOUT DELTA-AGENT (6) HIV (human immunodeficiency virus infection) Assessment/Plan: -d/c on ERT meds Code(s): Z21 - ASYMPTOMATIC HUMAN IMMUNODEFICIENCY VIRUS INFECTION STATUS (7) Constipation Assessment/Plan: -resolved with laxative -colace bid Code(s): K59.00 - CONSTIPATION, UNSPECIFIED (8) Abnormal liver enzymes Assessment/Plan: -trending up -afp negative -CT abd/pelvis unremarkable for any liver disease -seen by GI -U/S liver shows enlarged liver, which non specific, will f/u with PCP and GI o/ p Code(s): R74.8 - ABNORMAL LEVELS OF OTHER SERUM ENZYMES Assessment/Plan see problem list D/C home
[2017-07-10] MEDS ORDERED: METHADONE HCL 5 MG TABLET (FOR DETOX USE ONLY) PO ONE (06:00)
== END 2017-07-09 10:47 | disposition home or self-care (01) | DRG 720 ==
LOC: JER 11:24 → SUPCPDRO 11:24 → JERBED 15:13 → J6S 20:56
PROVIDERS: ADMIT Student in an Organized Health Care Education/Training Program; ATTEND Student in an Organized Health Care Education/Training Program
PROC: HZ81ZZZ Medication Management for Substance Abuse Treatment, Methadone Maintenance (ICD-10-PCS; principal; 2017-07-05)
DX: A41.9 Sepsis, unspecified organism (principal); J18.9 Pneumonia, unspecified organism; Z21 Asymptomatic human immunodeficiency virus [HIV] infection status; E87.2 Acidosis; R64 Cachexia; E87.1 Hypo-osmolality and hyponatremia; Z68.20 Body mass index [BMI] 20.0-20.9, adult; F11.23 Opioid dependence with withdrawal; F14.10 Cocaine abuse, uncomplicated; F12.20 Cannabis dependence, uncomplicated; D64.9 Anemia, unspecified; F17.210 Nicotine dependence, cigarettes, uncomplicated; F43.10 Post-traumatic stress disorder, unspecified; D35.02 Benign neoplasm of left adrenal gland; E86.0 Dehydration; B18.1 Chronic viral hepatitis B without delta-agent; F10.10 Alcohol abuse, uncomplicated; E86.1 Hypovolemia; I31.3 Pericardial effusion (noninflammatory); K59.00 Constipation, unspecified; R00.0 Tachycardia, unspecified; M10.9 Gout, unspecified; Z91.14 Patient's other noncompliance with medication regimen
CPT/HCPCS: 36415; 71010-TC; 71250-TC; 74176-TC; 76705-TC; 80048; 80053; 80307; 81003; 81015; 82088; 82105; 82533; 82550; 82553; 82803; 83605; 83690; 83735; 83930; 83935; 84100; 84244; 84300; 84443; 84484; 84550; 85025; 85610; 86480; 87040; 87070; 87086; 87116; 87205; 87206; 87556; 87804; 87899; 93005; 93010; 99284-25

== ENCOUNTER 2018-06-18 12:33 | Inpatient (IN) | payer OTHER ==
[2018-06-18 12:46] VITALS: BMI 22.2
--- NOTE | 2018-06-18 14:00 | HP ---
COWS - Scale Resting Pulse: 2= HI 101-120 Sweatin= Chills/Flushing Restless Observation: 1= Difficult to Sit Still Pupil Size: 1= Pupils >than Normal Bone or Joint Aches: 2= Severe Diffuse Aches Runny Nose/ Eye Tearin= Runny Nose/Eyes GI Upset > 30mins: 2= Nausea/Diarrhea Tremor Observation: 2= Slight Tremor Visible Yawning Observation: 1= 1-2x During Session Anxiety or Irritability: 2=Irritable/Anxious Goose Flesh Skin: 0=Smooth Skin COWS Score: 16 CIWA Score - CIWA Score Nausea/Vomitin Muscle Tremors: 2 Anxiety: 3 Agitation: 2 Paroxysmal Sweats: 1-Minimal Palms Moist Orientation: 0-Oriented Tacttile Disturbances: 1-Very Mild Itch/Numbness Auditory Disturbances: 1-Very Mild Visual Disturbances: 0-None Headache: 2-Mild CIWA-Ar Total Score: 14 Admission ROS S - HPI Chief Complaint: i need help to stop using morphine,cocaine,alcohol,xanax,marijuana Allergies/Adverse Reactions: Allergies Allergy/AdvReac Type Severity Reaction Status Date / Time peanut Allergy Severe Itching Verified 06/18/18 13:58 No Known Drug Allergies Allergy Verified 06/18/18 13:58 soy Allergy Verified 06/18/18 13:58 NKDA Allergy Uncoded 06/18/18 13:58 History of Present Illness: this 48 years old male with morphine dependence,alcohol dependence,cocaine, marijuana and xanax dependence,seeking detox,lwithdrawal symptom,last detox - Ebola screening Have you traveled outside of the country in the last 21 days: No Have you had contact with anyone from an Ebola affected area: No Have you been sick,other than usual withdrawal symptoms: No Do you have a fever: No - Review of Systems Constitutional: Chills, Loss of Appetite, Malaise, Night Sweats, Changes in sleep, Weakness, Unintentional Wgt. Loss EENT: reports: Tearing, Nose Congestion Respiratory: reports: No Symptoms reported Cardiac: reports: No Symptoms Reported GI: reports: Diarrhea, Nausea, Vomiting, Abdominal cramping : reports: No Symptoms Reported Musculoskeletal: reports: Back Pain, Joint Pain, Muscle Pain, Joint Stiffness Integumentary: reports: Dryness Neuro: reports: Headache, Tremors Endocrine: reports: No Symptoms Reported Hematology: reports: No Symptoms Reported, Other (hiv) Psychiatric: reports: No Sypmtoms Reported, Judgement Intact, Mood/Affect Appropiate, Depressed Patient History - Patient Medical History Hx Anemia: No Hx Asthma: No Hx Chronic Obstructive Pulmonary Disease (COPD): No Hx Cancer: No Hx Cardiac Disorders: No Hx Congestive Heart Failure: No Hx Hypertension: No Hx Hypercholesterolemia: No Hx Pacemaker: No HX Cerebrovascular Accident: No Hx Seizures: No Hx Dementia: No Hx Diabetes: No Hx Gastrointestinal Disorders: Yes (acid reflux) Hx Liver Disease: Yes (hepatitis b.) Hx Genitourinary Disorders: No Hx Sexually Transmitted Disorders: No Hx Renal Disease (ESRD): No Hx Thyroid Disease: No Hx Human Immunodeficiency Virus (HIV): Yes (since 1999, LE2=988, followed at [facility]) Hx Hepatitis C: No Hx Depression: Yes (supposed to f/u with psych at [facility]) Hx Suicide Attempt: No Hx Bipolar Disorder: No Hx Schizophrenia: No Other Medical History: no suicidal,no homicidal - Patient Surgical History Past Surgical History: Yes Hx Neurologic Surgery: No Hx Cataract Extraction: No Hx Cardiac Surgery: No Hx Lung Surgery: No Hx Breast Surgery: No Hx Breast Biopsy: No Hx Abdominal Surgery: No Hx Appendectomy: No Hx Cholecystectomy: No Hx Genitourinary Surgery: No Hx Section: No Hx Orthopedic Surgery: Yes (left wrist severed nerve repair 05/2017) Other Surgical History: SURGERY ON LEFT FEMORAL ARTERY IN 1990 at [facility] laceration repar Anesthesia Reaction: No - PPD History Previous Implant?: Yes Documented Results: Negative w/proof Implanted On Prior [facility] Admission?: Yes Date: 07/05/17 Results: 0 mm PPD to be Administered?: No - Smoking Cessation Smoking history: Current every day smoker Have you smoked in the past 12 months: Yes Aproximately how many cigarettes per day: 20 Cigars Per Day: 0 Hx Chewing Tobacco Use: No Initiated information on smoking cessation: Yes 'Breaking Loose' booklet given: 06/18/18 - Substance & Tx. History Hx Alcohol Use: Yes Hx Substance Use: Yes Substance Use Type: Alcohol, Cocaine, Marijuana, Opiates, Tranquilizers Hx Substance Use Treatment: Yes (04/28/18 to 05/03/18 [facility]) - Substances Abused Alcohol Route: Oral Frequency: 1-3 times last 30 days Amount used: 12pk beer Age of first use: 10 Date of Last Use: 06/18/18 Cocaine Route: Inhalation Frequency: 1-3 times last 30 days Amount used: 1 gram Age of first use: 15 Date of Last Use: 06/18/18 Alprazolam (Xanax) Route: Oral Frequency: 1-3 times last 30 days Amount used: 4mg Age of first use: 38 Date of Last Use: 06/15/18 Marijuana/Hashish Route: Smoking Frequency: Daily Amount used: 1-2 joints Age of first use: 10 Date of Last Use: 06/17/18 MORPHINE Route: Oral Frequency: Daily Amount used: 70-80mg Age of first use: 47 Date of Last Use: 06/17/18 Family Disease History - Family Disease History Family Disease History: Heart Disease: Mother (HAD CABG, living), CA: Father ( LUNGS AND , hx etoh), Brother (heart disease), Other: Brother, Sister (a&w) Admission Physical Exam [facility] - Vital Signs Vital Signs: Vital Signs - 24 hr 06/18/18 12:44 Temperature 96.9 F L Pulse Rate 106 H Respiratory 18 Rate Blood Pressure 121/76 - Physical General Appearance: Yes: Moderate Distress, Tremorous, Irritable, Sweating, Anxious HEENTM: Yes: Normal ENT Inspection, CULLEN, Pharynx Normal Respiratory: Yes: Lungs Clear, Normal Breath Sounds, No Respiratory Distress Neck: Yes: Within Normal Limits, Supple, Trachea in good position Breast: Yes: Within Normal Limits Cardiology: Yes: Tachycardia Abdominal: Yes: Within Normal Limits, Normal Bowel Sounds, Non Tender, Flat, Soft Genitourinary: Yes: Within Normal Limits Back: Yes: Muscle Spasm Musculoskeletal: Yes: full range of Motion, Back pain, Joint Stiffness, Muscle Pain Extremities: Yes: Normal Range of Motion, Tremors Neurological: Yes: furnace installer II-XII NML intact, Fully Oriented, Alert, Motor Strength 5/5 Integumentary: Yes: Dry Lymphatic: Yes: Within Normal Limits - Diagnostic (1) Opioid dependence with withdrawal Current Visit: No Status: Acute (2) Alcohol dependence with uncomplicated withdrawal Current Visit: No Status: Acute (3) Cannabis dependence Current Visit: No Status: Acute (4) Chronic hepatitis B Current Visit: No Status: Chronic Comment: cont meds, labs today. will titi a ct a/p +/- contast and refer for gi eval. (5) HIV (human immunodeficiency virus infection) Current Visit: No Status: Chronic Comment: urge to continue adherence to atripla, monitor closely. he is concerned and states he will cont meds. labs today. (6) Nicotine dependence Current Visit: No Status: Chronic Qualifiers: Nicotine product type: cigarettes Substance use status: uncomplicated Qualified Code(s): F17.210 - Nicotine dependence, cigarettes, uncomplicated Comment: not ready to discuss cessation at this time. (7) Gout Current Visit: No Status: Chronic Comment: no recent flares, monitor. (8) Weight loss Current Visit: Yes Status: Acute (9) Neuropathy Current Visit: Yes Status: Acute Cleared for Admission [facility] - Detox or Rehab [facility] Level of Care: Medically Managed Detox Regimen/Protocol: Methadone/Valium [facility] Breath Alcohol Content Breath Alcohol Content: 0.067 Urine Drug Screen - Results Drug Screen Negative: No Urine Drug Screen Results: THC-Marijuana, ENRIQUE-Cocaine, BZO-Benzodiazepines
[2018-06-18] MEDS ORDERED: ACETAMINOPHEN 325 MG TABLET (FP) PO PRN (14:31)
[2018-06-18] MEDS ORDERED: guaiFENesin/D-METHORPHAN HB 10 ML UNIT-DOSE CUPS PO PRN (14:31)
[2018-06-18] MEDS ORDERED: P-EPHED 60MG/TRIPROLIDI 2.5MG TABLET PO PRN (14:31)
[2018-06-18] MEDS ORDERED: MENTHOL/PHENOL 1 EACH UD MM PRN (14:31)
[2018-06-18] MEDS ORDERED: IBUPROFEN 400 MG TABLET (FP) PO PRN (14:31)
[2018-06-18] MEDS ORDERED: MAGNESIUM HYDROX 2400MG/30ML ORAL SUSPENSION 30 ML CUP PO PRN (14:31)
[2018-06-18] MEDS ORDERED: LOPERAMIDE HCL 2 MG CAPSULE PO PRN (14:31)
[2018-06-18] MEDS ORDERED: MAGNESIUM CITRATE 300 ML BOTTLE PO PRN (14:31)
[2018-06-18] MEDS ORDERED: MAG HYDROX/AL HYDROX/SIMETH 30 ML UNIT-DOSE CUP PO PRN (14:31)
[2018-06-18] MEDS ORDERED: hydrOXYzine PAMOATE 25 MG CAPSULE (FP) PO PRN (14:31)
[2018-06-18] MEDS ORDERED: diazePAM 5 MG TABLET PO ONE (14:50)
[2018-06-18] MEDS ORDERED: METHADONE HCL 10 MG TABLET (FOR DETOX USE ONLY) PO ONE ×2 (14:50→23:00)
[2018-06-18] MEDS: NICOTINE 21 MG/24 HOURS TOPICAL PATCH TD SCH (15:56)
[2018-06-18 18:02] LABS: URINE APPEARANCE CLEAR; URINE BILIRUBIN NEGATIVE (<2.0 mg/dL); URINE COLOR STRAW; URINE GLUCOSE (UA) NEGATIVE (NEGATIVE); URINE KETONE NEGATIVE (NEGATIVE); URINE LEUK ESTERASE NEGATIVE (NEGATIVE); URINE NITRITE NEGATIVE (NEGATIVE); URINE PROTEIN NEGATIVE (NEGATIVE); URINE UROBILINOGEN NEGATIVE mg/dL (0.2-1.0)
[2018-06-18] MEDS ORDERED: MELATONIN 5 MG TABLETS PO PRN (22:00)
[2018-06-18] MEDS: THIAMINE HCL 100 MG TABLET (FP) PO SCH (22:14)
[2018-06-18] MEDS: diazePAM 5 MG TABLET PO SCH (22:14)
[2018-06-19] MEDS: diazePAM 5 MG TABLET PO SCH ×3 (05:36→22:01)
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
[2018-06-19] MEDS ORDERED: METHADONE HCL 10 MG TABLET (FOR DETOX USE ONLY) PO SCH (10:00)
[2018-06-19 10:35] LABS: HEMATOCRIT 39.4 % (35.4-49); HEMOGLOBIN 12.9 GM/dL (11.7-16.9); MCH 31.9 pg (25.7-33.7); MCHC 32.8 g/dl (32.0-35.9); MEAN CELL VOLUME 97.4 fl (80-96); MEAN PLT VOLUME 7.5 fl (7.5-11.1); PLATELET COUNT 340 K/MM3 (134-434); RBC 4.04 M/mm3 (4.00-5.60); RDW 14.4 % (11.9-15.9); WHITE BLOOD COUNT 7.8 K/mm3 (4.0-10.0)
[2018-06-19 10:40] LABS: ALBUMIN 3.4 g/dl (3.4-5.0); ALK PHOS 99 U/L (45-117); ANION GAP 7 MMOL/L (8-16); BILIRUBIN,TOTAL 0.4 mg/dL (0.2-1); BLOOD UREA NITROGEN 19 mg/dL (7-18); CALCIUM 9.1 mg/dL (8.5-10.1); CHLORIDE 106 mmol/L (98-107); CO2 27 mmol/L (21-32); GLUCOSE,RANDOM 66 mg/dL (74-106); POTASSIUM 4.4 mmol/L (3.5-5.1); SGOT/AST 55 U/L (15-37); SGPT/ALT 82 U/L (13-61); SODIUM 140 mmol/L (136-145); TOT PROT 6.7 g/dl (6.4-8.2)
[2018-06-19] MEDS: PATIENT'S OWN MEDICATION (NON-FORMULARY) (Efavirenz/Emtricitab/Tenofovir 1 TAB) PO SCH (10:43)
[2018-06-19] MEDS: diazePAM 5 MG TABLET PO PRN ×2 (10:43→18:26)
[2018-06-19] MEDS: NICOTINE 21 MG/24 HOURS TOPICAL PATCH TD SCH (10:43)
[2018-06-19] MEDS: PRENATAL VITAMINS W/ FOLIC ACID TABLET (FP) PO SCH (10:43)
--- NOTE | 2018-06-19 11:07 | EKG ---
Test Reason : Blood Pressure : / mmHG Vent. Rate : 093 BPM Atrial Rate : 093 BPM P-R Int : 166 ms QRS Dur : 088 ms QT Int : 354 ms P-R-T Axes : 054 070 055 degrees QTc Int : 440 ms NORMAL SINUS RHYTHM NORMAL ECG WHEN COMPARED WITH ECG OF 28-APR-2018 12:20, NO SIGNIFICANT CHANGE WAS FOUND Confirmed by Neal Cortez MD ([id number]) on 06/19/2018 11:07:05 AM Referred By: Confirmed By:Neal Cortez MD
--- NOTE | 2018-06-19 11:14 | PN ---
[facility] CIWA - CIWA Score Nausea/Vomitin-No Nausea/No Vomiting Muscle Tremors: 3 Anxiety: 3 Agitation: 3 Paroxysmal Sweats: 3 Orientation: 0-Oriented Tacttile Disturbances: 0-None Auditory Disturbances: 0-None Visual Disturbances: 0-None Headache: 0-None Present CIWA-Ar Total Score: 12 S COWS - Scale Resting Pulse: 0= IN 80 or Below Sweatin=Flushed/Facial Moisture Restless Observation: 1= Difficult to Sit Still Pupil Size: 0= Normal to Room Light Bone or Joint Aches: 2= Severe Diffuse Aches Runny Nose/ Eye Tearin= Nasal Congestion GI Upset > 30mins: 1= Stomach Cramp Tremor Observation of Outstretched Hands: 2= Slight Tremor Visible Yawning Observation: 0= None Anxiety or Irritability: 2=Irritable/Anxious Goose Flesh Skin: 0=Smooth Skin COWS Score: 11 S Progress Note (SOAP) Subjective: irritable agitation anxiety sweats interrupted sleep restless Objective: 06/19/18 11:13 Vital Signs Temperature 97.5 F L 06/19/18 09:16 Pulse Rate 76 06/19/18 09:16 Respiratory Rate 18 06/19/18 09:16 Blood Pressure 124/99 06/19/18 09:16 O2 Sat by Pulse Oximetry (%) Laboratory Tests 06/18/18 06/19/18 06/19/18 15:25 07:30 07:30 WBC 7.8 RBC 4.04 Hgb 12.9 Hct 39.4 MCV 97.4 H MCH 31.9 MCHC 32.8 RDW 14.4 Plt Count 340 MPV 7.5 Sodium 140 Potassium 4.4 Chloride 106 Carbon Dioxide 27 Anion Gap 7 L BUN 19 H Creatinine 1.0 Creat Clearance w eGFR > 60 Random Glucose 66 L Calcium 9.1 Total Bilirubin 0.4 AST 55 H ALT 82 H Alkaline Phosphatase 99 Total Protein 6.7 Albumin 3.4 Urine Color Straw Urine Appearance Clear Urine pH 6.0 Ur Specific [place] 1.006 Urine Protein Negative Urine Glucose (UA) Negative Urine Ketones Negative Urine Blood Negative Urine Nitrite Negative Urine Bilirubin Negative Urine Urobilinogen Negative Ur Leukocyte Esterase Negative RPR Titer 06/19/18 07:30 WBC RBC Hgb Hct MCV MCH MCHC RDW Plt Count MPV Sodium Potassium Chloride Carbon Dioxide Anion Gap BUN Creatinine Creat Clearance w eGFR Random Glucose Calcium Total Bilirubin AST ALT Alkaline Phosphatase Total Protein Albumin Urine Color Urine Appearance Urine pH Ur Specific [place] Urine Protein Urine Glucose (UA) Urine Ketones Urine Blood Urine Nitrite Urine Bilirubin Urine Urobilinogen Ur Leukocyte Esterase RPR Titer Nonreactive aaox3 ambulating no acute distress Assessment: 06/19/18 11:14 withdrawal sx Plan: continue detox increase fluids
[2018-06-19] MEDS: NICOTINE POLACRILEX 2 MG GUM BUC PRN (13:56)
[2018-06-19] MEDS: QUEtiapine FUMARATE 50 MG TABLET PO SCH (22:01)
[2018-06-19] MEDS: THIAMINE HCL 100 MG TABLET (FP) PO SCH (22:01)
[2018-06-20] MEDS: diazePAM 5 MG TABLET PO PRN ×3 (05:58→18:53)
[2018-06-20] MEDS: NICOTINE POLACRILEX 2 MG GUM BUC PRN ×3 (06:00→22:20)
[2018-06-20] MEDS: diazePAM 5 MG TABLET PO SCH ×2 (10:48→22:20)
[2018-06-20] MEDS: METHADONE HCL 5 MG TABLET (FOR DETOX USE ONLY) PO SCH (10:48)
[2018-06-20] MEDS: NICOTINE 21 MG/24 HOURS TOPICAL PATCH TD SCH (10:48)
[2018-06-20] MEDS: PRENATAL VITAMINS W/ FOLIC ACID TABLET (FP) PO SCH (10:48)
[2018-06-20] MEDS: PATIENT'S OWN MEDICATION (NON-FORMULARY) (Efavirenz/Emtricitab/Tenofovir 1 TAB) PO SCH (10:49)
--- NOTE | 2018-06-20 11:49 | PN ---
[facility] CIWA - CIWA Score Nausea/Vomitin-No Nausea/No Vomiting Muscle Tremors: 3 Anxiety: 2 Agitation: 3 Paroxysmal Sweats: 1-Minimal Palms Moist Orientation: 0-Oriented Tacttile Disturbances: 1-Very Mild Itch/Numbness Auditory Disturbances: 0-None Visual Disturbances: 0-None Headache: 1-Very Mild CIWA-Ar Total Score: 11 [facility] COWS - Scale Resting Pulse: 0= GA 80 or Below Sweatin= Chills/Flushing Restless Observation: 1= Difficult to Sit Still Pupil Size: 0= Normal to Room Light Bone or Joint Aches: 1= Mild Discomfort Runny Nose/ Eye Tearin= Nasal Congestion GI Upset > 30mins: 2= Nausea/Diarrhea Tremor Observation of Outstretched Hands: 1= Tremor [place], Not Seen Yawning Observation: 1= 1-2x During Session Anxiety or Irritability: 1=Feels Anxious/Irritable Goose Flesh Skin: 0=Smooth Skin COWS Score: 9 [facility] Progress Note (SOAP) Subjective: anxiety restlessness tremor joints pain Objective: 06/20/18 11:47 Vital Signs Temperature 97.7 F 06/20/18 09:02 Pulse Rate 78 06/20/18 09:02 Respiratory Rate 18 06/20/18 09:02 Blood Pressure 132/90 06/20/18 09:02 O2 Sat by Pulse Oximetry (%) Laboratory Last Values WBC 7.8 K/mm3 (4.0-10.0) 06/19/18 07:30 RBC 4.04 M/mm3 (4.00-5.60) 06/19/18 07:30 Hgb 12.9 GM/dL (11.7-16.9) 06/19/18 07:30 Hct 39.4 % (35.4-49) 06/19/18 07:30 MCV 97.4 fl (80-96) H 06/19/18 07:30 MCH 31.9 pg (25.7-33.7) 06/19/18 07:30 MCHC 32.8 g/dl (32.0-35.9) 06/19/18 07:30 RDW 14.4 % (11.9-15.9) 06/19/18 07:30 Plt Count 340 K/MM3 (134-434) 06/19/18 07:30 MPV 7.5 fl (7.5-11.1) 06/19/18 07:30 Sodium 140 mmol/L (136-145) 06/19/18 07:30 Potassium 4.4 mmol/L (3.5-5.1) 06/19/18 07:30 Chloride 106 mmol/L (98-107) 06/19/18 07:30 Carbon Dioxide 27 mmol/L (21-32) 06/19/18 07:30 Anion Gap 7 MMOL/L (8-16) L 06/19/18 07:30 BUN 19 mg/dL (7-18) H 06/19/18 07:30 Creatinine 1.0 mg/dL (0.55-1.3) 06/19/18 07:30 Creat Clearance w eGFR > 60 (>60) 06/19/18 07:30 Random Glucose 66 mg/dL (74-106) L 06/19/18 07:30 Calcium 9.1 mg/dL (8.5-10.1) 06/19/18 07:30 Total Bilirubin 0.4 mg/dL (0.2-1) 06/19/18 07:30 AST 55 U/L (15-37) H 06/19/18 07:30 ALT 82 U/L (13-61) H 06/19/18 07:30 Alkaline Phosphatase 99 U/L (45-117) 06/19/18 07:30 Total Protein 6.7 g/dl (6.4-8.2) 06/19/18 07:30 Albumin 3.4 g/dl (3.4-5.0) 06/19/18 07:30 Urine Color Straw 06/18/18 15:25 Urine Appearance Clear 06/18/18 15:25 Urine pH 6.0 (5.0-8.0) 06/18/18 15:25 Ur Specific [place] 1.006 (1.001-1.035) 06/18/18 15:25 Urine Protein Negative (NEGATIVE) 06/18/18 15:25 Urine Glucose (UA) Negative (NEGATIVE) 06/18/18 15:25 Urine Ketones Negative (NEGATIVE) 06/18/18 15:25 Urine Blood Negative (NEGATIVE) 06/18/18 15:25 Urine Nitrite Negative (NEGATIVE) 06/18/18 15:25 Urine Bilirubin Negative (<2.0 mg/dL) 06/18/18 15:25 Urine Urobilinogen Negative mg/dL (0.2-1.0) 06/18/18 15:25 Ur Leukocyte Esterase Negative (NEGATIVE) 06/18/18 15:25 RPR Titer Nonreactive (NONREACTIVE) 06/19/18 07:30 lab noted Assessment: 06/20/18 11:48 withdrawal sx Plan: continue detox
[2018-06-20] MEDS: THIAMINE HCL 100 MG TABLET (FP) PO SCH (22:20)
[2018-06-20] MEDS: QUEtiapine FUMARATE 50 MG TABLET PO SCH (22:20)
[2018-06-21] MEDS: diazePAM 5 MG TABLET PO PRN (03:58)
[2018-06-21] MEDS: diazePAM 5 MG TABLET PO SCH ×2 (10:28→22:14)
[2018-06-21] MEDS: METHADONE HCL 5 MG TABLET (FOR DETOX USE ONLY) PO SCH (10:28)
[2018-06-21] MEDS: NICOTINE 21 MG/24 HOURS TOPICAL PATCH TD SCH (10:29)
[2018-06-21] MEDS: PATIENT'S OWN MEDICATION (NON-FORMULARY) (Efavirenz/Emtricitab/Tenofovir 1 TAB) PO SCH (10:29)
[2018-06-21] MEDS: PRENATAL VITAMINS W/ FOLIC ACID TABLET (FP) PO SCH (10:29)
[2018-06-21] MEDS: NICOTINE POLACRILEX 2 MG GUM BUC PRN (10:31)
--- NOTE | 2018-06-21 13:10 | PN ---
[facility] Progress Note (SOAP) Subjective: tremor sweat muscle cramping anxiety restlessness Objective: 06/21/18 13:09 Vital Signs Temperature 96.4 F L 06/21/18 09:14 Pulse Rate 70 06/21/18 09:14 Respiratory Rate 18 06/21/18 09:14 Blood Pressure 129/86 06/21/18 09:14 O2 Sat by Pulse Oximetry (%) Laboratory Last Values WBC 7.8 K/mm3 (4.0-10.0) 06/19/18 07:30 RBC 4.04 M/mm3 (4.00-5.60) 06/19/18 07:30 Hgb 12.9 GM/dL (11.7-16.9) 06/19/18 07:30 Hct 39.4 % (35.4-49) 06/19/18 07:30 MCV 97.4 fl (80-96) H 06/19/18 07:30 MCH 31.9 pg (25.7-33.7) 06/19/18 07:30 MCHC 32.8 g/dl (32.0-35.9) 06/19/18 07:30 RDW 14.4 % (11.9-15.9) 06/19/18 07:30 Plt Count 340 K/MM3 (134-434) 06/19/18 07:30 MPV 7.5 fl (7.5-11.1) 06/19/18 07:30 Sodium 140 mmol/L (136-145) 06/19/18 07:30 Potassium 4.4 mmol/L (3.5-5.1) 06/19/18 07:30 Chloride 106 mmol/L (98-107) 06/19/18 07:30 Carbon Dioxide 27 mmol/L (21-32) 06/19/18 07:30 Anion Gap 7 MMOL/L (8-16) L 06/19/18 07:30 BUN 19 mg/dL (7-18) H 06/19/18 07:30 Creatinine 1.0 mg/dL (0.55-1.3) 06/19/18 07:30 Creat Clearance w eGFR > 60 (>60) 06/19/18 07:30 Random Glucose 66 mg/dL (74-106) L 06/19/18 07:30 Calcium 9.1 mg/dL (8.5-10.1) 06/19/18 07:30 Total Bilirubin 0.4 mg/dL (0.2-1) 06/19/18 07:30 AST 55 U/L (15-37) H 06/19/18 07:30 ALT 82 U/L (13-61) H 06/19/18 07:30 Alkaline Phosphatase 99 U/L (45-117) 06/19/18 07:30 Total Protein 6.7 g/dl (6.4-8.2) 06/19/18 07:30 Albumin 3.4 g/dl (3.4-5.0) 06/19/18 07:30 Urine Color Straw 06/18/18 15:25 Urine Appearance Clear 06/18/18 15:25 Urine pH 6.0 (5.0-8.0) 06/18/18 15:25 Ur Specific [place] 1.006 (1.001-1.035) 06/18/18 15:25 Urine Protein Negative (NEGATIVE) 06/18/18 15:25 Urine Glucose (UA) Negative (NEGATIVE) 06/18/18 15:25 Urine Ketones Negative (NEGATIVE) 06/18/18 15:25 Urine Blood Negative (NEGATIVE) 06/18/18 15:25 Urine Nitrite Negative (NEGATIVE) 06/18/18 15:25 Urine Bilirubin Negative (<2.0 mg/dL) 06/18/18 15:25 Urine Urobilinogen Negative mg/dL (0.2-1.0) 06/18/18 15:25 Ur Leukocyte Esterase Negative (NEGATIVE) 06/18/18 15:25 RPR Titer Nonreactive (NONREACTIVE) 06/19/18 07:30 lab noted Assessment: 06/21/18 13:09 withdrawal sx Plan: continue detox
[2018-06-21] MEDS ORDERED: diazePAM 5 MG TABLET PO ONE (15:35)
[2018-06-21] MEDS: QUEtiapine FUMARATE 50 MG TABLET PO SCH (22:14)
[2018-06-21] MEDS: THIAMINE HCL 100 MG TABLET (FP) PO SCH (22:14)
[2018-06-22 09:45] VITALS: BP 116/73; PULSE 74; TEMP 97.2
[2018-06-22] MEDS ORDERED: METHADONE HCL 10 MG TABLET (FOR DETOX USE ONLY) PO SCH (10:00)
[2018-06-22] MEDS ORDERED: diazePAM 5 MG TABLET PO SCH (10:00)
[2018-06-22] MEDS: PATIENT'S OWN MEDICATION (NON-FORMULARY) (Efavirenz/Emtricitab/Tenofovir 1 TAB) PO SCH (10:00)
--- NOTE | 2018-06-22 10:20 | DS ---
[facility] Detox Discharge Summary Admission Date: 06/18/18 Discharge Date: 06/22/18 - History Present History: Alcohol Dependence, Opioid Dependence - Physical Exam Results Vital Signs: Vital Signs Temperature 97.2 F L 06/22/18 09:43 Pulse Rate 74 06/22/18 09:43 Respiratory Rate 18 06/22/18 09:43 Blood Pressure 116/73 06/22/18 09:43 O2 Sat by Pulse Oximetry (%) Pertinent Admission Physical Exam Findings: PATIENT REQUESTED TO BE DISCHARGED TODAY HE FEELS WELL AND HAS TO TAKE CARE OF SOME PERSONAL MATTERS. STATES HE HAS FOLLOW UP APPT WITH [facility] ON . PATIENT MEDICALLY STABLE. DENIES SI/HI. ENCOURAGED TO GO TO ER IF SYMPTOMS OF WITHDRAWAL OCCUR. PATIENT ALSO STRONGLY RECOMMENDED TO ATTEND GROUP MEETINGS TO PREVENT RELAPSE AND TO FOLLOW UP WITH [facility] NEXT WEEK. - Treatment Hospital Course: Detox Protocol Followed, Detoxed Safely, Responded well, Discharged Condition Good, Rehab Referral Accepted Patient has Accepted a Rehab Referral to: [facility].HAS APPT NEXT WEEK 06/27/18 - Medication Discharge Medications: Ambulatory Orders Colchicine 0.6 mg PO DAILY #30 tablet 11/01/17 Buspirone HCl [Buspar -] 10 mg PO TID #90 tablet 06/14/18 Quetiapine Fumarate [Seroquel -] 50 mg PO HS #30 tablet 06/14/18 Efavirenz/Emtricitab/Tenofovir [Atripla Tablet -] 1 tab PO DAILY #30 tab - Diagnosis (1) Alcohol dependence with uncomplicated withdrawal Current Visit: Yes Status: Resolved (2) Opioid dependence with withdrawal Current Visit: Yes Status: Resolved - AMA Did Patient Leave Against Medical Advice: No
[2018-06-22] MEDS: PRENATAL VITAMINS W/ FOLIC ACID TABLET (FP) PO SCH (10:34)
[2018-06-22] MEDS: NICOTINE 21 MG/24 HOURS TOPICAL PATCH TD SCH (11:16)
[2018-06-23] MEDS ORDERED: METHADONE HCL 5 MG TABLET (FOR DETOX USE ONLY) PO SCH (06:00)
== END 2018-06-22 11:08 | disposition home or self-care (01) | DRG 773 ==
LOC: YASAS 12:33 → Y6N 14:41
PROC: HZ2ZZZZ Detoxification Services for Substance Abuse Treatment (ICD-10-PCS; principal; 2018-06-18)
DX: F11.23 Opioid dependence with withdrawal (principal); F10.230 Alcohol dependence with withdrawal, uncomplicated; F12.20 Cannabis dependence, uncomplicated; F17.210 Nicotine dependence, cigarettes, uncomplicated; F19.24 Other psychoactive substance dependence with psychoactive substance-induced mood disorder; F19.282 Other psychoactive substance dependence with psychoactive substance-induced sleep disorder; F41.9 Anxiety disorder, unspecified; G62.9 Polyneuropathy, unspecified; R94.5 Abnormal results of liver function studies; K59.00 Constipation, unspecified; B18.1 Chronic viral hepatitis B without delta-agent; Z21 Asymptomatic human immunodeficiency virus [HIV] infection status; M10.9 Gout, unspecified; K21.9 Gastro-esophageal reflux disease without esophagitis; R00.0 Tachycardia, unspecified; Z87.898 Personal history of other specified conditions
CPT/HCPCS: 36415; 80053; 81003; 85027; 86593; 93005; 93010

== ENCOUNTER 2018-07-05 10:37 | Inpatient (IN) | payer OTHER ==
[2018-07-05 11:15] VITALS: BMI 22.2
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
[2018-07-05] MEDS ORDERED: NICOTINE POLACRILEX 2 MG GUM BUC PRN (11:58)
[2018-07-05] MEDS ORDERED: MENTHOL/PHENOL 1 EACH UD MM PRN (11:58)
[2018-07-05] MEDS ORDERED: LOPERAMIDE HCL 2 MG CAPSULE PO PRN (11:58)
[2018-07-05] MEDS ORDERED: guaiFENesin/D-METHORPHAN HB 10 ML UNIT-DOSE CUPS PO PRN (11:58)
[2018-07-05] MEDS ORDERED: ACETAMINOPHEN 325 MG TABLET (FP) PO PRN (11:58)
[2018-07-05] MEDS ORDERED: P-EPHED 60MG/TRIPROLIDI 2.5MG TABLET PO PRN (11:58)
[2018-07-05] MEDS ORDERED: TUBERCULIN PPD 5 TU/0.1ML VIAL ID ONE (13:44)
[2018-07-05] MEDS: NICOTINE 21 MG/24 HOURS TOPICAL PATCH TD SCH (13:50)
[2018-07-05] MEDS: cloNIDine HCL 0.1 MG TABLET PO SCH ×2 (13:50→21:27)
[2018-07-05] MEDS: CYCLOBENZAPRINE HCL 10 MG TABLET (FP) PO PRN (13:50)
[2018-07-05] MEDS: MAG HYDROX/AL HYDROX/SIMETH 30 ML UNIT-DOSE CUP PO PRN ×2 (13:58→19:05)
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
[2018-07-05] MEDS: hydrOXYzine PAMOATE 50 MG CAPSULE (FP) PO PRN ×2 (17:26→21:29)
[2018-07-05 17:46] LABS: HEMATOCRIT 42.6 % (35.4-49); HEMOGLOBIN 14.3 GM/dL (11.7-16.9); MCH 33.3 pg (25.7-33.7); MCHC 33.6 g/dl (32.0-35.9); MEAN CELL VOLUME 99.1 fl (80-96); MEAN PLT VOLUME 7.9 fl (7.5-11.1); PLATELET COUNT 428 K/MM3 (134-434); RDW 13.9 % (11.9-15.9); WHITE BLOOD COUNT 7.8 K/mm3 (4.0-10.0)
[2018-07-05 18:00] LABS: ALBUMIN 4.2 g/dl (3.4-5.0); ALK PHOS 108 U/L (45-117); ANION GAP 1 MMOL/L (8-16); BILIRUBIN,TOTAL 0.4 mg/dL (0.2-1); BLOOD UREA NITROGEN 11 mg/dL (7-18); CALCIUM 9.6 mg/dL (8.5-10.1); CHLORIDE 106 mmol/L (98-107); CO2 30 mmol/L (21-32); CREATININE 0.9 mg/dL (0.55-1.3); GLUCOSE,RANDOM 89 mg/dL (74-106); POTASSIUM 4.4 mmol/L (3.5-5.1); SGOT/AST 58 U/L (15-37); SGPT/ALT 92 U/L (13-61); SODIUM 137 mmol/L (136-145); TOT PROT 8.1 g/dl (6.4-8.2)
[2018-07-05 18:27] LABS: URINE APPEARANCE CLEAR; URINE BILIRUBIN NEGATIVE (<2.0 mg/dL); URINE COLOR YELLOW; URINE GLUCOSE (UA) NEGATIVE (NEGATIVE); URINE KETONE NEGATIVE (NEGATIVE); URINE LEUK ESTERASE TRACE (NEGATIVE); URINE NITRITE NEGATIVE (NEGATIVE); URINE PROTEIN NEGATIVE (NEGATIVE)
[2018-07-05 18:38] LABS: URINE MUCUS RARE
[2018-07-05] MEDS: THIAMINE HCL 100 MG TABLET (FP) PO SCH (21:27)
[2018-07-05] MEDS: QUEtiapine FUMARATE 50 MG TABLET PO SCH (21:27)
[2018-07-05] MEDS ORDERED: MELATONIN 5 MG TABLETS PO PRN (22:00)
[2018-07-06] MEDS: CYCLOBENZAPRINE HCL 10 MG TABLET (FP) PO PRN ×2 (06:35→15:33)
[2018-07-06] MEDS: IBUPROFEN 400 MG TABLET (FP) PO PRN (06:35)
[2018-07-06] MEDS: hydrOXYzine PAMOATE 50 MG CAPSULE (FP) PO PRN (06:36)
[2018-07-06] MEDS: PATIENT'S OWN MEDICATION (NON-FORMULARY) (Efavirenz/Emtricitab/Tenofovir 1 TAB) PO SCH (09:44)
[2018-07-06] MEDS: cloNIDine HCL 0.1 MG TABLET PO SCH ×2 (09:44→21:49)
[2018-07-06] MEDS: PRENATAL VITAMINS W/ FOLIC ACID TABLET (FP) PO SCH (09:44)
[2018-07-06] MEDS: NICOTINE 21 MG/24 HOURS TOPICAL PATCH TD SCH (09:45)
--- NOTE | 2018-07-06 16:21 | PN ---
[facility] Progress Note Note: PT REQUESTING SUBOXONE TREATMENT. MET PT WITH COUNSELOR JAYDEN REYNOSO WHO CONFIRMED PT WILL BE CONTINUING CARE AT [facility] AFTER REHAB. PLAN:START SUBOXONE 2 MG/0.5 MG SL DAILY X 3 DAYS RE-EVAL PT ON MONDAY.
[2018-07-06] MEDS ORDERED: BUPRENORPHINE/NALOXONE 2 MG/0.5 MG FILM PACKET SL SCH (16:45)
--- NOTE | 2018-07-06 17:42 | PN ---
S COWS - Scale Resting Pulse: 1= DC 81-100 Sweatin= Chills/Flushing Restless Observation: 1= Difficult to Sit Still Pupil Size: 2= Moderately Dilated (Pupils = 4 mm) Bone or Joint Aches: 2= Severe Diffuse Aches Runny Nose/ Eye Tearin= Runny Nose/Eyes GI Upset > 30mins: 1= Stomach Cramp Tremor Observation of Outstretched Hands: 2= Slight Tremor Visible Yawning Observation: 0= None Anxiety or Irritability: 1=Feels Anxious/Irritable Goose Flesh Skin: 3=Piloerection COWS Score: 16 [facility] Progress Note (SOAP) Subjective: Patient wanting to start on Suboxone to assist in maintaining sobriety when discharged. States I'm going to need help when I'm discharged. States having withdrawal symptoms. I can't eat, I can't sleep. My anxiety level is up. I have achy back and bone pain all over. Objective: Alert and oriented x 3. COWS is 16 w/ 10 points based on objective symptoms. Current heart rate is 82. Vital Signs - 24 hr 07/05/18 07/06/18 07/06/18 22:00 00:30 03:30 Temperature Pulse Rate 79 Respiratory 18 18 Rate Blood Pressure 124/89 07/06/18 06:51 Temperature 98.3 F Pulse Rate 76 Respiratory 17 Rate Blood Pressure 114/95 Assessment: Opiate withdrawal. Arrangements have been made by counselor for patient to attend [facility] upon discharge. Plan: Reviewed Suboxone medication treatment as an opiate agonist. Discussed overdose risks r/t medication treatment and if patient continues to use other prescribed and illicit opiates (dibbing and dabbing). Give Suboxone 2mg/0.5 mg SL now. Evaluate in 60 minutes and prescribe a dose increase based on patient's subjective and objective symptoms. Continue rehab.
[2018-07-06] MEDS ORDERED: BUPRENORPHINE/NALOXONE 2 MG/0.5 MG FILM PACKET SL ONE ×2 (18:15→22:00)
--- NOTE | 2018-07-06 21:07 | PN ---
[facility] Progress Note Note: Patient states stomach cramps are less and headache is less. Heart rate = 72 Pupils at 3 mm. Rhinorrhea has decreased. Still w/ mild tremors. Plan: Give additional dose of Suboxone 2 mg HS. Start Suboxone SL 4mg daily in am.
[2018-07-06] MEDS: THIAMINE HCL 100 MG TABLET (FP) PO SCH (21:49)
[2018-07-06] MEDS: CYCLOBENZAPRINE HCL 10 MG TABLET (FP) PO SCH (21:49)
[2018-07-06] MEDS: QUEtiapine FUMARATE 50 MG TABLET PO SCH (21:49)
[2018-07-07] MEDS: CYCLOBENZAPRINE HCL 10 MG TABLET (FP) PO SCH ×3 (06:40→21:35)
[2018-07-07] MEDS: PRENATAL VITAMINS W/ FOLIC ACID TABLET (FP) PO SCH (10:02)
[2018-07-07] MEDS: cloNIDine HCL 0.1 MG TABLET PO SCH ×2 (10:02→21:35)
[2018-07-07] MEDS: NICOTINE 21 MG/24 HOURS TOPICAL PATCH TD SCH (10:02)
[2018-07-07] MEDS: BUPRENORPHINE/NALOXONE 2 MG/0.5 MG FILM PACKET SL SCH (10:02)
[2018-07-07] MEDS: PATIENT'S OWN MEDICATION (NON-FORMULARY) (Efavirenz/Emtricitab/Tenofovir 1 TAB) PO SCH (10:02)
[2018-07-07] MEDS: THIAMINE HCL 100 MG TABLET (FP) PO SCH (21:35)
[2018-07-07] MEDS: QUEtiapine FUMARATE 50 MG TABLET PO SCH (21:35)
[2018-07-08] MEDS: CYCLOBENZAPRINE HCL 10 MG TABLET (FP) PO SCH ×3 (06:30→21:27)
[2018-07-08] MEDS: PRENATAL VITAMINS W/ FOLIC ACID TABLET (FP) PO SCH (09:54)
[2018-07-08] MEDS: NICOTINE 21 MG/24 HOURS TOPICAL PATCH TD SCH (09:54)
[2018-07-08] MEDS: cloNIDine HCL 0.1 MG TABLET PO SCH ×2 (09:54→21:27)
[2018-07-08] MEDS: PATIENT'S OWN MEDICATION (NON-FORMULARY) (Efavirenz/Emtricitab/Tenofovir 1 TAB) PO SCH (09:54)
[2018-07-08] MEDS: BUPRENORPHINE/NALOXONE 2 MG/0.5 MG FILM PACKET SL SCH (09:54)
[2018-07-08] MEDS: QUEtiapine FUMARATE 50 MG TABLET PO SCH (21:27)
[2018-07-08] MEDS: THIAMINE HCL 100 MG TABLET (FP) PO SCH (21:27)
[2018-07-09] MEDS: CYCLOBENZAPRINE HCL 10 MG TABLET (FP) PO SCH ×3 (07:40→21:37)
[2018-07-09] MEDS: PATIENT'S OWN MEDICATION (NON-FORMULARY) (Efavirenz/Emtricitab/Tenofovir 1 TAB) PO SCH (09:53)
[2018-07-09] MEDS: cloNIDine HCL 0.1 MG TABLET PO SCH ×2 (09:53→21:37)
[2018-07-09] MEDS: BUPRENORPHINE/NALOXONE 2 MG/0.5 MG FILM PACKET SL SCH (09:53)
[2018-07-09] MEDS: NICOTINE 21 MG/24 HOURS TOPICAL PATCH TD SCH (09:53)
[2018-07-09] MEDS: PRENATAL VITAMINS W/ FOLIC ACID TABLET (FP) PO SCH (09:53)
[2018-07-09] MEDS: QUEtiapine FUMARATE 50 MG TABLET PO SCH (21:37)
[2018-07-09] MEDS: THIAMINE HCL 100 MG TABLET (FP) PO SCH (21:37)
[2018-07-10] MEDS: CYCLOBENZAPRINE HCL 10 MG TABLET (FP) PO SCH ×3 (06:54→21:33)
[2018-07-10] MEDS: NICOTINE 21 MG/24 HOURS TOPICAL PATCH TD SCH (10:00)
[2018-07-10] MEDS: cloNIDine HCL 0.1 MG TABLET PO SCH ×2 (10:00→21:33)
[2018-07-10] MEDS: PRENATAL VITAMINS W/ FOLIC ACID TABLET (FP) PO SCH (10:00)
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
[2018-07-10] MEDS: BUPRENORPHINE/NALOXONE 2 MG/0.5 MG FILM PACKET SL SCH (10:01)
[2018-07-10] MEDS: PATIENT'S OWN MEDICATION (NON-FORMULARY) (Efavirenz/Emtricitab/Tenofovir 1 TAB) PO SCH (10:03)
[2018-07-10] MEDS: PSYLLIUM 5.85 GM PACKET PO SCH ×2 (13:30→14:25)
[2018-07-10] MEDS: IBUPROFEN 400 MG TABLET (FP) PO PRN (16:04)
[2018-07-10] MEDS: PSYLLIUM 5.85 GM PACKET PO PRN (21:33)
[2018-07-10] MEDS: THIAMINE HCL 100 MG TABLET (FP) PO SCH (21:33)
[2018-07-10] MEDS: QUEtiapine FUMARATE 50 MG TABLET PO SCH (21:33)
[2018-07-10] MEDS ORDERED: SENNOSIDES/DOCUSATE COMBO (SENNA PLUS) TABLET (UD) PO SCH (22:00)
[2018-07-11] MEDS: CYCLOBENZAPRINE HCL 10 MG TABLET (FP) PO SCH ×3 (06:34→21:52)
[2018-07-11] MEDS ORDERED: DOCUSATE SODIUM 100 MG CAPSULE (FP) PO ONE (06:45)
[2018-07-11] MEDS ORDERED: SENNOSIDES 8.6MG TABLET (FP) PO ONE (06:45)
[2018-07-11] MEDS: SENNOSIDES/DOCUSATE COMBO (SENNA PLUS) TABLET (UD) PO SCH ×2 (07:19→22:45)
[2018-07-11] MEDS: cloNIDine HCL 0.1 MG TABLET PO SCH ×2 (10:32→21:52)
[2018-07-11] MEDS: NICOTINE 21 MG/24 HOURS TOPICAL PATCH TD SCH (10:32)
[2018-07-11] MEDS: PRENATAL VITAMINS W/ FOLIC ACID TABLET (FP) PO SCH (10:32)
[2018-07-11] MEDS: PATIENT'S OWN MEDICATION (NON-FORMULARY) (Efavirenz/Emtricitab/Tenofovir 1 TAB) PO SCH (10:32)
[2018-07-11] MEDS: MAGNESIUM HYDROX 2400MG/30ML ORAL SUSPENSION 30 ML CUP PO PRN (10:33)
[2018-07-11] MEDS: BUPRENORPHINE/NALOXONE 2 MG/0.5 MG FILM PACKET SL SCH (10:33)
[2018-07-11] MEDS: PSYLLIUM 5.85 GM PACKET PO PRN (14:42)
[2018-07-11] MEDS: QUEtiapine FUMARATE 50 MG TABLET PO SCH (21:52)
[2018-07-11] MEDS: THIAMINE HCL 100 MG TABLET (FP) PO SCH (21:52)
[2018-07-11] MEDS: MAGNESIUM CITRATE 300 ML BOTTLE PO PRN (21:57)
[2018-07-12] MEDS: CYCLOBENZAPRINE HCL 10 MG TABLET (FP) PO SCH ×3 (06:28→21:51)
[2018-07-12] MEDS ORDERED: SODIUM PHOSPHATE/NA BIPHOS 133 ML ENEMA PR ONE (10:23)
[2018-07-12] MEDS: PRENATAL VITAMINS W/ FOLIC ACID TABLET (FP) PO SCH (10:26)
[2018-07-12] MEDS: NICOTINE 21 MG/24 HOURS TOPICAL PATCH TD SCH (10:26)
[2018-07-12] MEDS: cloNIDine HCL 0.1 MG TABLET PO SCH ×2 (10:26→21:51)
[2018-07-12] MEDS: PATIENT'S OWN MEDICATION (NON-FORMULARY) (Efavirenz/Emtricitab/Tenofovir 1 TAB) PO SCH (10:26)
[2018-07-12] MEDS: SENNOSIDES/DOCUSATE COMBO (SENNA PLUS) TABLET (UD) PO SCH ×2 (10:26→21:50)
[2018-07-12] MEDS: PSYLLIUM 5.85 GM PACKET PO PRN (10:26)
[2018-07-12] MEDS: BUPRENORPHINE/NALOXONE 2 MG/0.5 MG FILM PACKET SL SCH (10:26)
[2018-07-12] MEDS: QUEtiapine FUMARATE 50 MG TABLET PO SCH (21:51)
[2018-07-12] MEDS: THIAMINE HCL 100 MG TABLET (FP) PO SCH (21:51)
[2018-07-13] MEDS: CYCLOBENZAPRINE HCL 10 MG TABLET (FP) PO SCH ×3 (06:28→21:42)
[2018-07-13] MEDS: SENNOSIDES/DOCUSATE COMBO (SENNA PLUS) TABLET (UD) PO SCH ×2 (10:15→21:42)
[2018-07-13] MEDS: PATIENT'S OWN MEDICATION (NON-FORMULARY) (Efavirenz/Emtricitab/Tenofovir 1 TAB) PO SCH (10:15)
[2018-07-13] MEDS: BUPRENORPHINE/NALOXONE 2 MG/0.5 MG FILM PACKET SL SCH (10:15)
[2018-07-13] MEDS: PRENATAL VITAMINS W/ FOLIC ACID TABLET (FP) PO SCH (10:15)
[2018-07-13] MEDS: cloNIDine HCL 0.1 MG TABLET PO SCH ×2 (10:15→21:42)
[2018-07-13] MEDS: NICOTINE 21 MG/24 HOURS TOPICAL PATCH TD SCH (10:16)
[2018-07-13] MEDS: PSYLLIUM 5.85 GM PACKET PO PRN ×2 (10:37→21:45)
[2018-07-13] MEDS: QUEtiapine FUMARATE 50 MG TABLET PO SCH (21:42)
[2018-07-13] MEDS: THIAMINE HCL 100 MG TABLET (FP) PO SCH (21:42)
[2018-07-14] MEDS: CYCLOBENZAPRINE HCL 10 MG TABLET (FP) PO SCH ×3 (07:02→21:31)
[2018-07-14] MEDS: cloNIDine HCL 0.1 MG TABLET PO SCH ×2 (10:20→21:31)
[2018-07-14] MEDS: PSYLLIUM 5.85 GM PACKET PO PRN ×2 (10:21→21:32)
[2018-07-14] MEDS: NICOTINE 21 MG/24 HOURS TOPICAL PATCH TD SCH (10:21)
[2018-07-14] MEDS: PATIENT'S OWN MEDICATION (NON-FORMULARY) (Efavirenz/Emtricitab/Tenofovir 1 TAB) PO SCH (10:21)
[2018-07-14] MEDS: SENNOSIDES/DOCUSATE COMBO (SENNA PLUS) TABLET (UD) PO SCH ×2 (10:21→21:31)
[2018-07-14] MEDS: PRENATAL VITAMINS W/ FOLIC ACID TABLET (FP) PO SCH (10:21)
[2018-07-14] MEDS: BUPRENORPHINE/NALOXONE 2 MG/0.5 MG FILM PACKET SL SCH (10:21)
[2018-07-14] MEDS: MAGNESIUM HYDROX 2400MG/30ML ORAL SUSPENSION 30 ML CUP PO PRN (10:23)
[2018-07-14] MEDS: IBUPROFEN 400 MG TABLET (FP) PO PRN (14:34)
[2018-07-14] MEDS: QUEtiapine FUMARATE 50 MG TABLET PO SCH (21:31)
[2018-07-14] MEDS: THIAMINE HCL 100 MG TABLET (FP) PO SCH (21:31)
[2018-07-15] MEDS: CYCLOBENZAPRINE HCL 10 MG TABLET (FP) PO SCH ×3 (06:49→21:56)
[2018-07-15] MEDS: IBUPROFEN 400 MG TABLET (FP) PO PRN (07:32)
[2018-07-15] MEDS: PRENATAL VITAMINS W/ FOLIC ACID TABLET (FP) PO SCH (09:50)
[2018-07-15] MEDS: SENNOSIDES/DOCUSATE COMBO (SENNA PLUS) TABLET (UD) PO SCH ×2 (09:51→21:56)
[2018-07-15] MEDS: cloNIDine HCL 0.1 MG TABLET PO SCH ×2 (09:51→21:57)
[2018-07-15] MEDS: NICOTINE 21 MG/24 HOURS TOPICAL PATCH TD SCH (09:51)
[2018-07-15] MEDS: BUPRENORPHINE/NALOXONE 2 MG/0.5 MG FILM PACKET SL SCH (09:51)
[2018-07-15] MEDS: PATIENT'S OWN MEDICATION (NON-FORMULARY) (Efavirenz/Emtricitab/Tenofovir 1 TAB) PO SCH (09:51)
[2018-07-15] MEDS: MAGNESIUM HYDROX 2400MG/30ML ORAL SUSPENSION 30 ML CUP PO PRN (09:54)
[2018-07-15] MEDS: THIAMINE HCL 100 MG TABLET (FP) PO SCH (21:56)
[2018-07-15] MEDS: QUEtiapine FUMARATE 50 MG TABLET PO SCH (21:57)
[2018-07-15] MEDS: PSYLLIUM 5.85 GM PACKET PO PRN (21:59)
[2018-07-16] MEDS: CYCLOBENZAPRINE HCL 10 MG TABLET (FP) PO SCH ×3 (06:41→21:49)
[2018-07-16] MEDS: PATIENT'S OWN MEDICATION (NON-FORMULARY) (Efavirenz/Emtricitab/Tenofovir 1 TAB) PO SCH (10:41)
[2018-07-16] MEDS: NICOTINE 21 MG/24 HOURS TOPICAL PATCH TD SCH (10:41)
[2018-07-16] MEDS: SENNOSIDES/DOCUSATE COMBO (SENNA PLUS) TABLET (UD) PO SCH ×2 (10:41→21:49)
[2018-07-16] MEDS: cloNIDine HCL 0.1 MG TABLET PO SCH ×2 (10:41→21:49)
[2018-07-16] MEDS: PRENATAL VITAMINS W/ FOLIC ACID TABLET (FP) PO SCH (10:41)
[2018-07-16] MEDS: BUPRENORPHINE/NALOXONE 2 MG/0.5 MG FILM PACKET SL SCH (10:42)
[2018-07-16] MEDS: MAGNESIUM CITRATE 300 ML BOTTLE PO PRN (10:45)
[2018-07-16] MEDS: PSYLLIUM 5.85 GM PACKET PO SCH ×2 (14:21→21:49)
[2018-07-16] MEDS: THIAMINE HCL 100 MG TABLET (FP) PO SCH (21:48)
[2018-07-16] MEDS: QUEtiapine FUMARATE 50 MG TABLET PO SCH (21:49)
[2018-07-17] MEDS: CYCLOBENZAPRINE HCL 10 MG TABLET (FP) PO SCH ×3 (07:17→21:49)
[2018-07-17] MEDS: PSYLLIUM 5.85 GM PACKET PO SCH ×3 (07:17→21:49)
[2018-07-17] MEDS: cloNIDine HCL 0.1 MG TABLET PO SCH ×2 (10:40→21:48)
[2018-07-17] MEDS: BUPRENORPHINE/NALOXONE 2 MG/0.5 MG FILM PACKET SL SCH (10:41)
[2018-07-17] MEDS: SENNOSIDES/DOCUSATE COMBO (SENNA PLUS) TABLET (UD) PO SCH ×2 (10:41→21:49)
[2018-07-17] MEDS: PRENATAL VITAMINS W/ FOLIC ACID TABLET (FP) PO SCH (10:41)
[2018-07-17] MEDS: PATIENT'S OWN MEDICATION (NON-FORMULARY) (Efavirenz/Emtricitab/Tenofovir 1 TAB) PO SCH (10:41)
[2018-07-17] MEDS: NICOTINE 21 MG/24 HOURS TOPICAL PATCH TD SCH (10:42)
--- NOTE | 2018-07-17 14:11 | PN ---
S Progress Note Note: Patient reports experiencing difficulty to sleep despite taking Seroquel 50 mg and vistaril 50 mg at bedtime. Requests that Seroquel dosage be increased to 100 mg
[2018-07-17] MEDS: IBUPROFEN 400 MG TABLET (FP) PO PRN (18:50)
[2018-07-17] MEDS: QUEtiapine FUMARATE 100 MG TABLET (FP) PO SCH (21:49)
[2018-07-17] MEDS: THIAMINE HCL 100 MG TABLET (FP) PO SCH (21:49)
[2018-07-18] MEDS: PSYLLIUM 5.85 GM PACKET PO SCH ×3 (07:14→21:45)
[2018-07-18] MEDS: CYCLOBENZAPRINE HCL 10 MG TABLET (FP) PO SCH ×3 (07:14→21:45)
[2018-07-18] MEDS: SENNOSIDES/DOCUSATE COMBO (SENNA PLUS) TABLET (UD) PO SCH ×2 (10:24→21:45)
[2018-07-18] MEDS: BUPRENORPHINE/NALOXONE 2 MG/0.5 MG FILM PACKET SL SCH (10:24)
[2018-07-18] MEDS: PATIENT'S OWN MEDICATION (NON-FORMULARY) (Efavirenz/Emtricitab/Tenofovir 1 TAB) PO SCH (10:24)
[2018-07-18] MEDS: cloNIDine HCL 0.1 MG TABLET PO SCH ×2 (10:24→21:45)
[2018-07-18] MEDS: PRENATAL VITAMINS W/ FOLIC ACID TABLET (FP) PO SCH (10:24)
[2018-07-18] MEDS: NICOTINE 21 MG/24 HOURS TOPICAL PATCH TD SCH (10:25)
[2018-07-18] MEDS: QUEtiapine FUMARATE 100 MG TABLET (FP) PO SCH (21:45)
[2018-07-18] MEDS: THIAMINE HCL 100 MG TABLET (FP) PO SCH (21:45)
[2018-07-19 06:52] VITALS: BP 120/72; PULSE 72; TEMP 97.9
[2018-07-19] MEDS: PSYLLIUM 5.85 GM PACKET PO SCH (06:55)
[2018-07-19] MEDS: CYCLOBENZAPRINE HCL 10 MG TABLET (FP) PO SCH (06:55)
[2018-07-19] MEDS: PRENATAL VITAMINS W/ FOLIC ACID TABLET (FP) PO SCH (09:09)
[2018-07-19] MEDS: SENNOSIDES/DOCUSATE COMBO (SENNA PLUS) TABLET (UD) PO SCH (09:09)
[2018-07-19] MEDS: BUPRENORPHINE/NALOXONE 2 MG/0.5 MG FILM PACKET SL SCH (09:10)
[2018-07-19] MEDS: PATIENT'S OWN MEDICATION (NON-FORMULARY) (Efavirenz/Emtricitab/Tenofovir 1 TAB) PO SCH (09:10)
[2018-07-19] MEDS: cloNIDine HCL 0.1 MG TABLET PO SCH (09:13)
--- NOTE | 2018-07-19 10:02 | PN ---
Psychiatric Progress Note Vital Signs: Vital Signs Period Temp Pulse Resp BP Sys/Ashby Pulse Ox Last 24 Hr 97.9 F 72-82 - 119-120/72-76 Date of Session: 07/19/18 Chief Complaint:: Discharge note HPI: Patient addressing Opioid and Cannabis dependence comorbid with Nicotine Dependence , Substance-induced mood disorder and Substance-induced sleep disorder ROS: Hiv+, Neuropathy, Hep B Current Medications: Active Medications Generic Name Dose Route Start Last Admin Trade Name Freq PRN Reason Stop Dose Admin Acetaminophen 650 mg 07/05/18 11:58 Tylenol - PO Q4H PRN FEVER Al Hydroxide/Mg Hydroxide 30 ml 07/05/18 11:58 07/05/18 19:05 Mylanta Oral Suspension - PO 30 ml Q6H PRN Administration DYSPEPSIA Buprenorphine/Naloxone 2 each 07/07/18 10:00 07/19/18 09:10 Suboxone 2mg/0.5mg Sl Film - SL 2 each DAILY LALIT Administration Clonidine 0.1 mg 07/05/18 13:00 07/19/18 09:13 Catapres - PO Not Given BID LALIT Cyclobenzaprine HCl 10 mg 07/06/18 22:00 07/19/18 06:55 Flexeril - PO Not Given TID LALIT Eucalyptus/Menthol/Phenol/Sorbitol 1 each 07/05/18 11:58 Cepastat Lozenge - MM Q4H PRN SORE THROAT Guaifenesin 10 ml 07/05/18 11:58 Robitussin Dm - PO Q6H PRN COUGH Hydroxyzine Pamoate 50 mg 07/05/18 11:58 07/06/18 06:36 Vistaril - PO 50 mg Q4H PRN Administration AGITATION Ibuprofen 400 mg 07/05/18 11:58 07/17/18 18:50 Motrin - PO 400 mg Q6H PRN Administration Pain level 4-6 Loperamide HCl 4 mg 07/05/18 11:58 Imodium - PO Q6H PRN DIARRHEA Magnesium Citrate 300 ml 07/05/18 11:58 07/16/18 10:45 Citroma - PO 300 ml Q48H PRN Administration CONSTIPATION Magnesium Hydroxide 30 ml 07/05/18 11:58 07/15/18 09:54 Milk Of Magnesia - PO 30 ml DAILY PRN Administration CONSTIPATION Melatonin 5 mg 07/05/18 22:00 Melatonin PO HS PRN INSOMNIA Nicotine 21 mg 07/05/18 13:00 07/18/18 10:25 Nicoderm Patch - TD 21 mg DAILY LALIT Administration Nicotine Polacrilex 2 mg 07/05/18 11:58 07/09/18 14:09 Nicorette Gum - BUC 2 mg Q2H PRN Administration NICOTINE REPLACEMENT RX Non-Formulary Medication 1 tab 07/06/18 10:00 07/19/18 09:10 Efavirenz/Emtricitab/Tenofovir PO 1 tab DAILY LALIT Administration Multivit/Folic Acid/Iron 1 tab 07/06/18 10:00 07/19/18 09:09 Vitamins (Sjr) - PO 1 tab DAILY LALIT Administration Pseudoephedrine/Triprolidine 1 combo 07/05/18 11:58 Actifed - PO TID PRN NASAL CONGESTION Psyllium Hydrophilic Mucilloid 5.85 gm 07/16/18 14:00 07/19/18 06:55 Metamucil (Sugar-Free) - PO Not Given TID LALIT Quetiapine Fumarate 100 mg 07/17/18 22:00 07/18/18 21:45 Seroquel - PO 100 mg HS LALIT Administration Senna/Docusate Sodium 1 tablet 07/11/18 07:00 07/19/18 09:09 Pericolace - PO 1 tablet BID LALIT Administration Thiamine HCl 100 mg 07/05/18 22:00 07/18/18 21:45 Vitamin B1 - PO 100 mg HS LALIT Administration Current Side Effect: No Lab tests ordered: Yes Lab tests reviewed: Yes Provider note:: Patient has completed this program today. He has met his treatment goals and will continue to address his issues in outpatient treatment at [facility] at [address] [place] [address]. Told play writer that from his participation in this program, he has learned to surround himself with a sober support network in order to maintain abstinence. He is stable for discharge today Total face to face time:: 35 Mental Status Exam - Mental Status Exam Alert and Oriented to: Time, Place, Person Cognitive Function: Fair Patient Appearance: Well Groomed Mood: Hopeful, Euthymic Affect: Appropriate Patient Behavior: Cooperative Speech Pattern: Clear Voice Loudness: Normal Thought Process: Intact, Goal Oriented Thought Disorder: Not Present Hallucinations: Denies Suicidal Ideation: Denies Homicidal Ideation: Denies Insight/Judgement: Fair Appetite: Good Muscle strength/Tone: Normal Gait/Station: Normal Psychiatric Treatment Plan - Problem List (1) Opioid dependence Current Visit: Yes (2) Cannabis dependence Current Visit: Yes (3) Nicotine dependence Current Visit: No Qualifiers: Nicotine product type: cigarettes Substance use status: uncomplicated Qualified Code(s): F17.210 - Nicotine dependence, cigarettes, uncomplicated Comment: not ready to discuss cessation at this time. (4) PTSD (post-traumatic stress disorder) Current Visit: Yes (5) Substance-induced anxiety disorder Current Visit: Yes (6) Substance-induced sleep disorder Current Visit: Yes (7) HIV (human immunodeficiency virus infection) Current Visit: Yes (8) Neuropathy Current Visit: No (9) Hepatitis B Current Visit: Yes Initial treatment plan: Patient is discharged today and referred to [facility] for outpatient treatment
== END 2018-07-19 10:05 | disposition home or self-care (01) | DRG 772 ==
LOC: YASAS 10:37 → Y5N 12:49
PROVIDERS: ADMIT Psychiatry & Neurology Psychiatry; ATTEND Psychiatry & Neurology Psychiatry
PROC: HZ42ZZZ Group Counseling for Substance Abuse Treatment, Cognitive-Behavioral (ICD-10-PCS; principal; 2018-07-05)
DX: F11.20 Opioid dependence, uncomplicated (principal); F12.20 Cannabis dependence, uncomplicated; F17.210 Nicotine dependence, cigarettes, uncomplicated; F43.10 Post-traumatic stress disorder, unspecified; F19.280 Other psychoactive substance dependence with psychoactive substance-induced anxiety disorder; F19.282 Other psychoactive substance dependence with psychoactive substance-induced sleep disorder; Z21 Asymptomatic human immunodeficiency virus [HIV] infection status; G62.9 Polyneuropathy, unspecified; M10.9 Gout, unspecified; Z91.010 Allergy to peanuts; Z86.19 Personal history of other infectious and parasitic diseases
CPT/HCPCS: 36415; 80053; 81003; 81015; 85027; 86593; J0735

== ENCOUNTER 2019-04-18 08:23 | Day surgery (SDC) | payer OTHER ==
[2019-04-17 14:48] VITALS: BMI 19.5
[2019-04-18 10:03] VITALS: TEMP 97.2
[2019-04-18 10:43] VITALS: BP 146/88; PULSE 58
--- NOTE | 2019-04-19 15:51 | PATH ---
Surgical Pathology Report Patient Name: RAHAT LIN [facility]. Rec. #: [id number] /Age/Gender: 1970 (Age: 49) / M Account: [id number] Location: U-ENDOSCOPY Taken: 04/18/2019 Received: 04/18/2019 Reported: 04/19/2019 Physicians: Jassi Hdez M.D. Specimen(s) Received A: DUODENUM B: STOMACH BODY C: DISTAL DESCENDING COLON POLYP Clinical History Weight loss, anemia Postoperative diagnosis: Gastritis, polyp on distal descending colon, AVM descending/hepatic flexure Final Diagnosis A. DUODENUM, BIOPSY: DUODENAL MUCOSA WITHOUT SIGNIFICANT PATHOLOGIC FINDINGS. B. STOMACH, BODY, BIOPSY: GASTRIC BODY MUCOSA WITH MILD CHRONIC GASTRITIS. IMMUNOHISTOCHEMICAL STAIN FOR H. PYLORI IS NEGATIVE. C. DISTAL DESCENDING COLON, POLYP, POLYPECTOMY: TUBULAR ADENOMA. Electronically Signed Keira Olivia M.D. Gross Description A. Received in formalin, labeled "biopsy duodenum" are 2 wallace, irregular portions of soft tissue measuring 0.2 and 0.3 cm. in greatest dimension. The specimens are submitted in toto in one cassette. B. Received in formalin, labeled "biopsy body of stomach" are 2 wallace, irregular portions of soft tissue measuring 0.3 and 0.8 cm. in greatest dimension. The specimens are submitted in toto in one cassette. C. Received in formalin, labeled "polyp distal descending colon" is a wallace, irregular portion of soft tissue measuring 0.4 cm. in greatest dimension. The specimen is submitted in toto in one cassette. DL/04/18/2019 saudi04/18/2019
== END 2019-04-18 10:33 | disposition home or self-care (01) ==
LOC: JASU-ENDO 08:23
PROVIDERS: ATTEND Internal Medicine Gastroenterology
PROC: 0DBL8ZX Excision of Transverse Colon, Via Natural or Artificial Opening Endoscopic, Diagnostic (ICD-10-PCS; 2019-04-18)
PROC: 0D5M8ZZ Destruction of Descending Colon, Via Natural or Artificial Opening Endoscopic (ICD-10-PCS; 2019-04-18)
PROC: 0D5L8ZZ Destruction of Transverse Colon, Via Natural or Artificial Opening Endoscopic (ICD-10-PCS; 2019-04-18)
PROC: 0DB68ZX Excision of Stomach, Via Natural or Artificial Opening Endoscopic, Diagnostic (ICD-10-PCS; 2019-04-18)
PROC: 0DBM8ZX Excision of Descending Colon, Via Natural or Artificial Opening Endoscopic, Diagnostic (ICD-10-PCS; principal; 2019-04-18 08:00)
DX: D64.9 Anemia, unspecified (principal); R63.4 Abnormal weight loss; K55.20 Angiodysplasia of colon without hemorrhage; D12.4 Benign neoplasm of descending colon; K64.8 Other hemorrhoids
CPT/HCPCS: 88305-TC; 88342-TC

== ENCOUNTER → 2019-05-14 | Outpatient (CLI) | payer OTHER | LOC: YHH 13:24 ==